=== PATIENT | male | born 1955 | race American Indian/Alaskan Native ===

== ENCOUNTER 2017-02-07 10:38 | Inpatient (IN) | payer OTHER ==
[2017-02-07 10:38] VITALS: BMI 28.8
--- NOTE | 2017-02-07 10:55 | ED PDOC ---
Arrival/HPI - General Chief Complaint: Chest Pain Time Seen by Provider: 02/07/17 10:39 Historian: Patient - History of Present Illness Narrative History of Present Illness (Text): 02/07/17 10:48 A 62 year old male, whose past medical history includes diabetes, hypertension and hyperlipidemia, presents to the emergency department complaining of chest pain for the past 2 days. Patient describes his pain as a pressure sensation. He reports he was seen in another facility but signed out AMA since he no longer wanted to be treated in their emergency room. Patient denies any fever, nausea, vomiting, abdominal pain, shortness of breath, cough or any other complaints. PMD: Dr. Gonzalez Time/Duration: Other (2 days) Symptom Course: Unchanged Quality: Other Context: Other Past Medical History - Provider Review Nursing Documentation Reviewed: Yes - Infectious Disease Hx of Infectious Diseases: None - Cardiac Hx Cardiac Disorders: Yes Hx Hypertension: Yes - Pulmonary Hx Respiratory Disorders: No Other/Comment: smokes 1ppd - Neurological Hx Neurological Disorder: No - HEENT Hx HEENT Disorder: No - Renal Hx Renal Disorder: No - Endocrine/Metabolic Hx Endocrine Disorders: Yes Hx Diabetes Mellitus Type 2: Yes - Hematological/Oncological Hx Blood Disorders: No - Integumentary Hx Dermatological Disorder: No - Musculoskeletal/Rheumatological Hx Falls: No - Gastrointestinal Hx Gastrointestinal Disorders: No - Genitourinary/Gynecological Hx Genitourinary Disorders: No - Psychiatric Hx Psychophysiologic Disorder: No Hx Substance Use: No Other/Comment: smokes 1ppd - Anesthesia Hx Anesthesia Reactions: No Hx Malignant Hyperthermia: No Family/Social History - Physician Review Nursing Documentation Reviewed: Yes Family/Social History: No Known Family HX Smoking Status: Heavy Smoker > 10 Cigarettes Daily Hx Alcohol Use: Yes Hx Substance Use: No Allergies/Home Meds Allergies/Adverse Reactions: Allergies No Known Allergies Allergy (Verified 09/23/15 13:13) Home Medications: Home Meds Medication Instructions Recorded Confirmed Metformin ER [Glucophage XR] 500 mg PO BID 09/23/15 02/07/17 Lisinopril [Zestril] 10 mg PO DAILY 02/07/17 02/07/17 Simvastatin [Simvastatin] 10 mg PO DAILY 02/07/17 02/07/17 Review of Systems - Physician Review All systems were reviewed & negative as marked: Yes - Review of Systems Constitutional: absent: Fevers Respiratory: absent: SOB, Cough Cardiovascular: Chest Pain Gastrointestinal: absent: Abdominal Pain, Nausea, Vomiting Physical Exam Vital Signs Temp Pulse Resp BP Pulse Ox 02/07/17 13:00 97.9 F 70 18 168/73 H 02/07/17 12:49 71 148/71 02/07/17 12:38 70 17 148/71 98 02/07/17 10:38 98.9 F 77 18 182/83 H 98 Appearance: Positive for: Well-Appearing, Non-Toxic, Comfortable Pain Distress: None Mental Status: Positive for: Alert and Oriented X 3 - Systems Exam Head: Present: Atraumatic, Normocephalic Pupils: Present: PERRL Extroacular Muscles: Present: EOMI Conjunctiva: Present: Normal Mouth: Present: Moist Mucous Membranes Neck: Present: Normal Range of Motion Respiratory/Chest: Present: Clear to Auscultation, Good Air Exchange. No: Respiratory Distress, Accessory Muscle Use Cardiovascular: Present: Regular Rate and Rhythm, Normal S1, S2. No: Murmurs Abdomen: Present: Normal Bowel Sounds. No: Tenderness, Distention, Peritoneal Signs Back: Present: Normal Inspection Upper Extremity: Present: Normal Inspection. No: Cyanosis, Edema Lower Extremity: Present: Normal Inspection, NORMAL PULSES. No: Edema, CALF TENDERNESS Neurological: Present: GCS=15, CN II-XII Intact, Speech Normal Skin: Present: Warm, Dry, Normal Color. No: Rashes Psychiatric: Present: Alert, Oriented x 3, Normal Insight, Normal Concentration Medical Decision Making ED Course and Treatment: 02/07/17 10:48 Impression: A 62 year old male with chest pain. Patient denies any shortness of breath or other complaints. Plan: -- Chest xray -- EKG -- Labs -- Urinalysis -- Aspirin -- Reassess and disposition Progress Notes: EKG shows NSR at 77 BPM with LVH, repolarization abnormalities with no changes from prior on 09/23/15. Interpreted by me. 02/07/17 11:[address] Gonzalez at bedside, who accepts patient to her service for observation. 02/07/17 12:45 On re-evaluation, patient is pain free and texting on his phone. - Lab Interpretations Lab Results: 02/07/17 11:00 02/07/17 11:00 Lab Results 02/07/17 11:00: WBC 8.2, RBC 4.07, Hgb 12.3 L, Hct 35.8 L, MCV 88.0, MCH 30.2, MCHC 34.4, RDW 14.3, Plt Count 295, MPV 10.6, Gran % 58.8, Lymph % (Auto) 34.8, [place] % (Auto) 5.9, Eos % (Auto) 0.4 L, Baso % (Auto) 0.1, Gran # 4.81, Lymph # 2.9, [place] # 0.5, Eos # 0.0, Baso # 0.01, PT 10.2, INR 0.94, APTT 25.4, Sodium 138, Potassium 4.5, Chloride 104, Carbon Dioxide 25, Anion Gap 14, BUN 20, Creatinine 1.3, Est GFR ( Amer) > 60, Est GFR (Non-Af Amer) 56, Random Glucose 293 H, Calcium 8.9, Magnesium 1.9, Total Bilirubin 0.4, AST 21, ALT 35, Alkaline Phosphatase 66, Lactate Dehydrogenase 461, Total Creatine Kinase 284 H , CK-MB (CK-2) 2.7, CK-MB (CK-2) % Cancelled, Troponin I 0.04 D, NT-Pro-B Natriuret Pep 67.7, Total Protein 6.7, Albumin 3.8, Globulin 2.9, Albumin/ Globulin Ratio 1.3 - RAD Interpretation Radiology Orders: 02/07/17 10:47 CHEST PORTABLE [RAD] Stat - Medication Orders Current Medication Orders: Acetaminophen (Tylenol 325mg Tab) 650 mg PO Q6H PRN PRN Reason: Fever >100.4 F Albuterol/Ipratropium (Duoneb 3 Mg/0.5 Mg (3 Ml) Ud) 3 ml IH [id number] [facility] Aspirin (Aspirin Chewable) 81 mg PO DAILY [facility] Insulin Human Lispro (Humalog Med) 0 units SC ACHS [facility] PRN Reason: Protocol Lisinopril (Zestril) 20 mg PO DAILY [facility] Last Admin: 02/07/17 12:43 Dose: Metformin HCl (Glucophage) 500 mg PO BID [facility] Metoprolol Succinate (Toprol Xl) 25 mg PO BRK [facility] Last Admin: 02/07/17 12:49 Dose: 25 MG MAR Pulse and Blood Pressure Document 02/07/17 12:49 JOL (Rec: 02/07/17 12:49 JOL [id number]) Pulse Pulse Rate (60-90) 71 Blood Pressure Blood Pressure (100/60-150/90) 148/71 Naproxen (Anaprox Ds) 550 mg PO BID [facility] Pantoprazole Sodium (Protonix Ec Tab) 40 mg PO 0630 [facility] Discontinued Medications Aspirin (Aspirin) 325 mg PO STAT STA Stop: 02/07/17 10:47 Last Admin: 02/07/17 11:09 Dose: 325 MG Morphine Sulfate (Morphine) 4 mg IVP STAT STA Stop: 02/07/17 11:36 Last Admin: 02/07/17 11:48 Dose: 4 MG MAR Pain Assessment Document 02/07/17 11:48 JOL (Rec: 02/07/17 11:54 JOL [id number]) Pain Reassessment Is this a pain reassessment? No Sleep Is patient sleeping during reassessment? No Presence of Pain Presence of Pain Yes Pain Scale Used Pain Scale Used Numeric Location Pain Location Body Site Chest Description Description Stabbing Intensity of Pain at present 7 IVP Administration Document 02/07/17 11:48 JOL (Rec: 02/07/17 11:54 JOL [id number]) Charges for Administration # of IVP Administrations 1 - Scribe Statement The provider has reviewed the documentation as recorded by the Wiliam Farfan Provider Scribe Attestation: All medical record entries made by the Scribe were at my direction and personally dictated by me. I have reviewed the chart and agree that the record accurately reflects my personal performance of the history, physical exam, medical decision making, and the department course for this patient. I have also personally directed, reviewed, and agree with the discharge instructions and disposition. Disposition/Present on Arrival - Present on Arrival Any Indicators Present on Arrival: No History of DVT/PE: No History of Uncontrolled Diabetes: No Urinary Catheter: No History of Decub. Ulcer: No History Surgical Site Infection Following: None - Disposition Have Diagnosis and Disposition been Completed?: Yes Diagnosis: Chest pain Disposition: HOSPITALIZED Disposition Time: 12:00 Patient Problems: Current Active Problems Problem Status Diagnosed Chest pain Acute Condition: STABLE
[2017-02-07 11:14] LABS: ADD MANUAL DIFF? NO
[2017-02-07 11:18] LABS: BASO # 0.01 K/mm3 (0.0-2.0); BASO % 0.1 % (0.0-3.0); EOS % 0.4 % (1.5-5.0); GRAN # 4.81 (1.4-6.5); GRAN % 58.8 % (50.0-68.0); HEMATOCRIT 35.8 % (42.0-52.0); LYMPH # 2.9 (1.2-3.4); LYMPH % 34.8 % (22.0-35.0); MEAN CORPUSCULAR HEMOGLOBIN 30.2 pg (25.0-35.0); MEAN CORPUSCULAR HGB CONC 34.4 g/dl (31.0-37.0); MEAN PLATELET VOLUME 10.6 fl (7.0-11.0); MONO # 0.5 (0.1-0.6); MONO % 5.9 % (1.0-6.0); PLATELET COUNT 295 10^3/uL (120.0-450.0); RED CELL DISTRIBUTION WIDTH 14.3 % (11.5-14.5); WHITE BLOOD COUNT 8.2 10^3/ul (4.5-11.0)
[2017-02-07 11:28] LABS: ALB/GLOB RATIO 1.3 (1.1-1.8); ALKALINE PHOSPHATASE 66 U/L (38-133); ALT/SGPT 35 U/L (7-56); AST/SGOT 21 U/L (15-59); BILIRUBIN,TOTAL 0.4 mg/dL (0.2-1.3); BLOOD UREA NITROGEN 20 mg/dL (7-21); CALCIUM 8.9 mg/dL (8.4-10.5); CARBON DIOXIDE 25 mmol/L (21-33); CHLORIDE 104 mmol/L (98-107); GFR AFRICAN-AMERICAN > 60; GLUCOSE,RANDOM 293 mg/dL (70-110); MAGNESIUM 1.9 mg/dL (1.7-2.2); POTASSIUM 4.5 mmol/L (3.6-5.0); SODIUM 138 mmol/L (132-148); TOTAL PROTEIN 6.7 g/dL (5.8-8.3)
[2017-02-07] MEDS ORDERED: Morphine 4 mg/ml ISec IVP STA (11:35)
[2017-02-07 11:39] LABS: INR 0.94 (0.93-1.08); PARTIAL THROMBOPLASTIN TIME 25.4 Seconds (23.7-30.8); TROPONIN I 0.04 ng/mL
[2017-02-07 12:12] LABS: URINE BILIRUBIN NEGATIVE (NEGATIVE); URINE BLOOD SMALL (NEGATIVE); URINE GLUCOSE (UA) >=1000 mg/dL (NEGATIVE); URINE KETONE NEGATIVE (NEGATIVE); URINE LEUKOCYTE ESTERASE NEGATIVE Leu/uL (NEGATIVE); URINE PROTEIN 30 mg/dL (<30 mg/dL); URINE UROBILINOGEN 0.2 E.U./dL (<1 E.U./dL)
[2017-02-07 12:14] LABS: URINE APPEARANCE CLEAR (CLEAR); URINE COLOR YELLOW (YELLOW)
[2017-02-07 12:22] LABS: URINE BACTERIA FEW (NEG); URINE WBC 0 - 2 /hpf (0-6)
[2017-02-07] MEDS: Metoprolol Succinate 25 mg XL Tab PO SCH (12:49)
--- NOTE | 2017-02-07 12:54 | HP ---
The patient is a 62-year-old, known to me from office practice. He states he was at work yesterday. He started to have chest pain across his chest, not related to his movement. It was associated shor tness of breath. No dizziness. Does complain of headache. No history of sweating. No history of f ever or chills. No history of nausea or vomiting. He went to hospital in [place], close to his work place. They wanted to admit him, but patient signed himself out and preferred to come to [facility] Room, where he presented with chest pain. PAST MEDICAL HISTORY: Significant for: 1. Uncontrolled diabetes. 2. Hyperlipidemia. 3. Hypertension. ALLERGIES: He is not allergic to any medications. MEDICATIONS AT HOME: He is on lisinopril 10 mg daily, simvastatin 10 mg daily, metformin 500 twice a day. SOCIAL HISTORY: He actively smokes. He has a history of heavy smoking in the past. Socially drinks . No history of drug abuse. 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 REVIEW OF SYSTEMS: Significant for chest pain. Complained of headache and shortness of breath. PHYSICAL EXAMINATION: GENERAL: He is awake and alert, communicative, not in any distress. VITAL SIGNS: He is afebrile, pulse 77, respirations 18, blood pressure 182/83. LUNGS: Bilateral good airflow, no rhonchi or crackle. HEART: S1, S2 audible. No murmur. ABDOMEN: Soft, nontender, no rebound, no guarding. NEUROLOGIC: He is awake and alert, communicative. Moves all extremities. EXTREMITIES: Bilateral legs, no edema. LABORATORY EXAMINATION: WBCs 8.2, hemoglobin 12.3, hematocrit 35.8, platelets 295. PT 10.2, INR 0.9 4. Chemistry: Sodium 138, potassium 4.5, chloride 104, CO2 25, BUN 20, creatinine 1.3, blood sugar of 293. LFTs are within normal limits. Repeat CPK is 284. Troponin 0.04. Urinalysis shows small b lood. EKG pending. X-ray chest is pending. ASSESSMENT: 1. Chest pain, rule out underlying coronary artery disease. The patient has multiple risk factors i ncluding hypertension, hyperlipidemia, non-insulin dependent diabetes and being a heavy smoker. 2. Hypertension. 3. Hyperlipidemia. 4. Non-insulin dependent diabetes. PLAN: We will place him in observation. We will follow up cardiac enzymes. The patient had stress test done in 2014 and was essentially unremarkable. Given his multiple risk factors, he might need c ardiac catheterization. We will get Dr. Devi on board. We will start him on beta jessika, aspirin a nd will monitor blood sugar and reevaluate patient in a.m. Silvano Gonzalez MD cc: [phone] TT: 02/07/2017 12:54:24 en
--- NOTE | 2017-02-07 13:25 | RAD ---
HISTORY: cp COMPARISON: 09/23/2015 FINDINGS: LUNGS: No active pulmonary disease. PLEURA: No significant pleural effusion identified, no pneumothorax apparent. CARDIOVASCULAR: Normal. OSSEOUS STRUCTURES: No significant abnormalities. VISUALIZED UPPER ABDOMEN: Normal. OTHER FINDINGS: None. IMPRESSION: No active disease.
--- NOTE | 2017-02-07 15:38 | CON ---
DATE: 02/07/2017 The patient in room 275, bed 2. REASON FOR CONSULTATION: Chest pain. HISTORY OF PRESENT ILLNESS: A 62-year-old male, known case of diabetes, hypertension, high cholester ol, smokes 1 pack a day, states that since Friday he has continuous chest pain which sometimes sha rp, sometimes pressure like. No relation to exertion, but it continuous day and night. It gets wors e when he extends the left arm. The chest pain gets worse. The patient found to have local tenderne ss at all area of the pain. Denies any radiation of the pain to the arms or back. Denies any nausea , vomiting, denies any sweating. In 11/2014, he had also similar chest pain and echo and stress test were done at that time. Stress test was negative. PAST MEDICAL HISTORY: Positive for uncontrolled diabetes mellitus, hyperlipidemia, hypertension. ALLERGIES: The patient denies any allergies. PERSONAL HISTORY: Smokes 1 pack a day, drinks only socially. FAMILY HISTORY: Positive for diabetes. MEDICATIONS: At home, patient was taking simvastatin 10 mg daily, lisinopril 10 mg daily, metformin 500 b.i.d. REVIEW OF SYSTEMS: All the systems were reviewed, positive mentioned in the history, others were neg ative. PHYSICAL EXAMINATION: VITAL SIGNS: Blood pressure 148/71, respirations 17, pulse ____. The patient is afebrile. HEENT: Head is normocephalic. Eyes: Pupils normal. Conjunctivae normal. NECK: JVP low. Carotid equal. THORAX: AP diameter normal. The patient had tenderness on anterior chest wall in the area of the pa in. Also when he extends the left arm, pain gets worse on the chest. LUNGS: Show a few rales. CARDIOVASCULAR: S1, S2. ABDOMEN: Soft, no tenderness, no organomegaly. Bowel sounds normal. EXTREMITIES: No clubbing, no cyanosis. LABORATORY DATA: WBC 8.2, hemoglobin 12.3, hematocrit 34.8, platelet 295. Sodium 138, potassium 4.5 , BUN 20, creatinine 1.3. Random sugar 293. AST, ALT normal. Calcium is normal. Magnesium is norm al. Troponin 0.04. Total protein and albumin normal. Chest x-ray: No active disease. EKG shows s inus rhythm with premature atrial complex, left ventricular hypertrophy. T inversions are seen. DIAGNOSES: Chest pain, musculoskeletal. Uncontrolled diabetes mellitus, hypertension, hyperlipidemi a. PLAN: We will do an echo and a stress test. We will start Naprosyn. The patient already on Protoni x 40 mg daily, aspirin 81 mg daily. We will add naproxen 550 b.i.d., metoprolol succinate, Toprol-XL 25 mg daily, lisinopril 20 mg p.o. daily, metformin 500 mg b.i.d. Advised patient not to smoke. We will recheck lipid profile, TSH, fasting hemoglobin and hemoglobin A1c and also we will do 2 more tr oponin levels. At present, we will treat pain symptomatically. We will follow with you. Lazaro Brady MD cc: [phone] TT: 02/07/2017 15:37:53 Confirmation # [id number] Dictation # [id number] tn
[2017-02-07] MEDS: Naproxen 550 mg Tab PO SCH (17:34)
[2017-02-07] MEDS: Insulin Lispro (humaLOG) MEDIUM Coverage SC SCH ×2 (17:35→21:18)
--- NOTE | 2017-02-07 18:20 | CARD ---
APPROVED REPORT EKG Measurement Heart [id number] <Conclusion> Normal sinus rhythm Left ventricular hypertrophy with repolarization abnormality Abnormal ECG
[2017-02-07] MEDS: Albuterol-Ipratrop 3 mg / 0.5 (3 ml) UD IH SCH (20:15)
[2017-02-08] MEDS: Pantoprazole 40 mg EC Tab PO SCH (05:30)
[2017-02-08] MEDS: Albuterol-Ipratrop 3 mg / 0.5 (3 ml) UD IH SCH ×3 (08:17→20:07)
[2017-02-08 08:22] LABS: TROPONIN I 0.03 ng/mL
[2017-02-08] MEDS: Metoprolol Succinate 25 mg XL Tab PO SCH (08:38)
[2017-02-08] MEDS: Insulin Lispro (humaLOG) MEDIUM Coverage SC SCH ×4 (08:38→21:40)
--- NOTE | 2017-02-08 12:03 | PN ---
DATE: 02/08/2017 SUBJECTIVE: The patient is a 62-year-old, seen and examined. Still has left-sided chest pain, more so on raising his arm, but he states he does have chest pain on the left side deep inside, no relatio n with activities. No fever or chills. No cough or congestion. PHYSICAL EXAMINATION: VITAL SIGNS: He is afebrile, pulse 67, respirations 18, blood pressure 141/81. LUNGS: Bilateral fair airflow, no rhonchi or crackle. HEART: S1, S2 audible. ABDOMEN: Soft, nontender, no rebound, no guarding. NEUROLOGIC: He is awake and alert, communicative, ambulatory. LABORATORY: Blood sugar is 208. ASSESSMENT: 1. Chest pain, muscular versus cardiac. 2. Hypertension. 3. Hyperlipidemia. 4. Active smoker. PLAN: I had a long discussion with the patient. He had stress test done that was unremarkable. He has multiple comorbidities including being active heavy smoker, being uncontrolled diabetic, and hype rtensive. He should benefit from cardiac catheterization. I explained to him at length and he state s he would agree for that. So Dr. Devi has contacted, he will arrange for cardiac catheterization on Friday. Silvano Gonzalez MD cc: [phone] TT: 02/08/2017 12:02:48 Confirmation # [id number] Dictation # [id number] lew
[2017-02-08] MEDS: Naproxen 550 mg Tab PO SCH ×2 (15:38→17:03)
[2017-02-09] MEDS: Albuterol-Ipratrop 3 mg / 0.5 (3 ml) UD IH SCH ×4 (01:46→21:00)
[2017-02-09] MEDS: Pantoprazole 40 mg EC Tab PO SCH (06:28)
[2017-02-09] MEDS: Metoprolol Succinate 25 mg XL Tab PO SCH (08:18)
[2017-02-09] MEDS: Insulin Lispro (humaLOG) MEDIUM Coverage SC SCH ×4 (08:18→22:14)
[2017-02-09] MEDS: Naproxen 550 mg Tab PO SCH ×2 (10:07→17:24)
--- NOTE | 2017-02-09 11:12 | CARD ---
APPROVED REPORT EXAM: Two-dimensional and M-mode echocardiogram with Doppler and color Doppler. 2D DIMENSIONS Left Atrium (2D)3.6 (1.6-4.0cm)IVSd1.3 (0.7-1.1cm) Aortic Root (2D)3.0 (2.0-3.7cm)LVDd4.5 (3.9-5.9cm) PWd1.5 (0.7-1.1cm)LVDs3.4 (2.5-4.0cm) FS (%) 22.9 %LVEF (%)46.2 (>50%) M-Mode DIMENSIONS Aortic Cusp Exc.1.60 (1.5-2.0cm) Mitral Valve MV E Bcqpprom83.6cm/sMV A Nqcyzsly55.0cm/sE/A ratio1.2 TDI Lateral E' Peak V10.90cm/sMedial E' Peak V7.51cm/sE/Lateral E'8.0 E/Medial E'11.7 Pulmonary Valve PV Peak Fuxpmguu25.7cm/sPV Peak Grad.4mmHg Tricuspid Valve TR Peak Yvtiderl595ce/sRAP [id number] Peak Gr.23mmHg [id number] LEFT VENTRICLE The left ventricle is normal size. There is mild concentric left ventricular hypertrophy. The systolic function is mildly impaired.EF-45% There is mild to moderate hypokinesis in the basal inferolateral wall. The left ventricular diastolic function is normal. No left ventricle thrombus noted on this study. There is no ventricular septal defect visualized. There is no left ventricular aneurysm. There is no mass noted in the left ventricle. RIGHT VENTRICLE The right ventricle is normal size. There is normal right ventricular wall thickness. The right ventricular systolic function is normal. ATRIA The left atrium size is normal. The right atrium size is normal. The interatrial septum is intact with no evidence for an atrial septal defect. AORTIC VALVE The aortic valve is mildly thickened but opens well. There is trace aortic regurgitation. There is no aortic valvular stenosis. Aortic Sclerosis Vs Mild MITRAL VALVE The mitral valve is thickened but opens well. Mitral regurgitation is mild. There is no mitral valve stenosis. There is no evidence of mitral valve prolapse. TRICUSPID VALVE The tricuspid valve leaflets are thickened , but open well. There is mild tricuspid regurgitation.RVSP-28 mmof Hg. There is no tricuspid valve stenosis. There is no tricuspid valve prolapse or vegetation. PULMONIC VALVE The pulmonary valve is normal in structure. GREAT VESSELS The aortic root is normal in size. The ascending aorta is normal in size. The pulmonary artery is normal. The IVC is normal in size and collapses >50% with inspiration. PERICARDIAL EFFUSION There is no pleural effusion. There is no pericardial effusion. <Conclusion> The left ventricle is normal size. There is mild concentric left ventricular hypertrophy. The systolic function is mildly impaired.EF-45% There is trace aortic regurgitation. Aortic Sclerosis Vs Mild Mitral regurgitation is mild. There is mild tricuspid regurgitation.RVSP-28 mmof Hg.
--- NOTE | 2017-02-09 12:23 | PN ---
DATE: 02/09/2017 HISTORY OF PRESENT ILLNESS: The patient is a 62-year-old male admitted to the hospital with left-sided chest pain. No dizziness, no shortness of breath. He has diabetes mellitus, which is uncontrolled. He had a cardiac stress test done as an outpatient, which was unremarkable. He is currently on telemetry. Hemoglobin was low at 12 g/dL. Denies any shortness of breath. No bleeding from any site. PAST MEDICAL HISTORY: Diabetes mellitus, uncontrolled hypertension, hyperlipidemia. ALLERGIES: No known drug allergies. CURRENT MEDICATIONS: Tylenol 650 q. 6 hours p.r.n., DuoNeb q. 6 hours scheduled , aspirin 81 mg daily, Lipitor 20 mg daily, Amaryl 4 mg daily, lisinopril 20 mg daily, metformin 500 mg p.o. b.i.d., Toprol XL 200 mg p.o. daily, naproxen 550 mg b.i.d., nicotine patch, Protonix. PERSONAL HISTORY: Heavy smoker. SOCIAL HISTORY: Lives at home. FAMILY HISTORY: Noncontributory. No positive family history in mother or father. SYSTEM REVIEW : as per HPI, rest 10 point system reviewed, negative PHYSICAL EXAMINATION: GENERAL: Comfortable in bed, in no acute distress. VITAL SIGNS: Heart rate is 80 per minute, respiratory 15 per minute, blood pressure 130/70. HEENT: Normal. NECK: No lymphadenopathy. CHEST: Air entry present, equal bilaterally. No added sound. CARDIOVASCULAR: S1, S2 normal. No murmur, no gallop. ABDOMEN: Soft, nontender. No hepatosplenomegaly. EXTREMITIES: No edema. SPINE: Nontender. SKIN: No petechia, no rash. LYMPHADENOPATHY: None. LABORATORY DATA: White count 8.2, hemoglobin 12.3, hematocrit 35.8, MCV 88, platelet count 295. Neutrophils 58%, lymphocytes 34%, monocytes 5%. Coags normal. Sodium 138, potassium 4.5, creatinine 1.3. TSH 1.82. ASSESSMENT: 1. Chest pain. 2. Hypertension. 3. Hyperlipidemia. 4. Uncontrolled diabetes mellitus. 5. Anemia. PLAN: Hemoglobin and hematocrit stable at 12.3 g/dL, workup for anemia, iron studies, B12, folate. Chest pain. He had cardiac stress, which was negative. Scheduled cardiac catheterization for Friday. Cardiology, Dr. Devi, following. He is on lisinopril 20 mg daily. We will continue that. Continue Lipitor 20 mg daily. He is also on nicotine patch because he has been smoking heavily. Continue Protonix. Will continue insulin sliding scale and glimepiride. Continue aspirin 81 mg daily. Discussed with the patient and his bedside. Discussed with the staff nurse. Lina Damon MD cc: [id number] TT: 02/09/2017 12:22:49 Confirmation # [id number] Dictation # [id number] jn MTDD
[2017-02-10] MEDS: Albuterol-Ipratrop 3 mg / 0.5 (3 ml) UD IH SCH ×4 (01:44→21:21)
[2017-02-10] MEDS: Pantoprazole 40 mg EC Tab PO SCH (05:39)
[2017-02-10] MEDS: Metoprolol Succinate 25 mg XL Tab PO SCH ×2 (06:45→08:12)
[2017-02-10] MEDS: Insulin Lispro (humaLOG) MEDIUM Coverage SC SCH ×2 (07:29→16:55)
[2017-02-10 07:51] LABS: HEMATOCRIT 35.8 % (42.0-52.0); MEAN CELL VOLUME 88.2 fL (80.0-105.0); MEAN CORPUSCULAR HEMOGLOBIN 29.3 pg (25.0-35.0); MEAN CORPUSCULAR HGB CONC 33.2 g/dl (31.0-37.0); MEAN PLATELET VOLUME 10.5 fl (7.0-11.0); RED CELL DISTRIBUTION WIDTH 14.4 % (11.5-14.5); WHITE BLOOD COUNT 7.2 10^3/ul (4.5-11.0)
[2017-02-10 09:04] LABS: ALB/GLOB RATIO 1.4 (1.1-1.8); ALKALINE PHOSPHATASE 60 U/L (38-133); ALT/SGPT 28 U/L (7-56); AST/SGOT 24 U/L (15-59); BILIRUBIN,TOTAL 0.4 mg/dL (0.2-1.3); BLOOD UREA NITROGEN 23 mg/dL (7-21); CALCIUM 9.3 mg/dL (8.4-10.5); CARBON DIOXIDE 23 mmol/L (21-33); CHLORIDE 109 mmol/L (95-110); GFR AFRICAN-AMERICAN > 60; GLUCOSE,RANDOM 129 mg/dL (70-110); POTASSIUM 4.5 mmol/L (3.6-5.0); SODIUM 143 mmol/L (132-148); TOTAL PROTEIN 6.5 g/dL (5.8-8.3)
--- NOTE | 2017-02-10 09:33 | PN ---
DATE: 02/10/2017 REASON FOR CONSULTATION AND FOLLOWUP: Chest pain. BRIEF CLINICAL HISTORY: This is a 62-year-old male with past medical history of diabetes, hypertensi on, hyperlipidemia, active tobacco abuse. Came in with chest pain, which is atypical tenderness. Th e patient was scheduled for a stress test, but given the multiple risk factors, suggested cardiac cat heterization. Initially, patient refused, but later on over the weekend, patient agreed. We will pr oceed for cardiac catheterization today because of the multiple risk factors for coronary artery dise ase. Discussed with Dr. Gonzalez and Dr. Brady. PHYSICAL EXAMINATION: VITAL SIGNS: Temperature afebrile, heart rate 73, blood pressure 150/83. HEENT: PERRLA. Extraocular muscles intact. NECK: Supple. No carotid bruits. No thyromegaly. CHEST: Clear to auscultation. HEART: S1, S2 regular. ABDOMEN: Soft. EXTREMITIES: Clubbing, cyanosis negative. WBC 11. , hemoglobin 11.9, hematocrit 35.8, platelet count 304. Chemistry shows sodium 130, pota ssium 4.5, chloride 104, carbon dioxide 25, anion gap of 14, BUN 20, creatinine 1.3. Total triglycer adonay 176, cholesterol 211, LDL 138, HDL 38. TSH 1.82. Troponin 0.03. IMPRESSION: No evidence of acute coronary syndrome, diabetes, hypertension, hyperlipidemia, cardiomy opathy. Most recent echo on 02/08/2017 said that aortic stenosis was mild aortic stenosis, mild jake l regurgitation, mild tricuspid regurgitation, ejection fraction 45%. The patient agreed for cardiac catheterization. We will keep n.p.o., give 300 loading Plavix. Further recommendations after the c ardiac catheterization. We will follow with you. Thank you, Dr. Gonzalez, for providing us the opportunity in taking care of the patient. Lazaro Devi MD cc: [phone] TT: 02/10/2017 09:32:40 Confirmation # [id number] Dictation # [id number] en
[2017-02-10] MEDS ORDERED: Lidocaine 2% Inj (20ml) ONE (10:37)
[2017-02-10] MEDS ORDERED: Midazolam 2 MG/2 ML VIAL ONE (10:38)
[2017-02-10] MEDS ORDERED: Iodixanol 320 MG/ML 200 ML BOTTLE IV ONE (10:38)
[2017-02-10] MEDS ORDERED: Bacitracin 500 Units/gm Oint Foilpak UD TOP ONE (11:58)
[2017-02-10] MEDS ORDERED: Sodium Chloride 0.9% 1,000 ML IV SCH (12:00)
[2017-02-10] MEDS: Naproxen 550 mg Tab PO SCH ×2 (13:44→17:03)
--- NOTE | 2017-02-10 14:15 | DS ---
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 Devi this morning. Currently, he is stable. PHYSICAL EXAMINATION: GENERAL: He is awake and alert, communicative. VITAL SIGNS: He is afebrile, pulse 80, respirations 22, blood pressure 151/83. LUNGS: Bilateral fair airflow, no rhonchi or crackle. HEART: S1, S2 audible. No murmur. ABDOMEN: Soft, nontender, no rebound, no guarding. NEUROLOGIC: He is awake and alert, communicative. LABORATORY EXAMINATION: WBCs 7.2, hemoglobin 11.9, hematocrit 35.8, platelets 304. Chemistry: [place] um 143, potassium 4.5, chloride 109, CO2 23, BUN 23, creatinine 1.3, blood sugar of 129. ASSESSMENT AND PLAN: 1. Intermittent chest pain with multiple comorbidities including hypertension, active smoker, and hy perlipidemia. 2. Non-insulin dependent diabetes. 3. Hyperlipidemia. So patient had cardiac cath done that showed ostial left main 80%-90%, so we will maintain him on sta tins, Plavix, aspirin, Protonix and continue him on current medication. Dr. Devi will make arrangeme nts for angioplasty in [facility] and he will be transferred here tomorrow to [facility]. Silvano Gonzalez MD cc: [phone] TT: 02/10/2017 14:14:54 en
[2017-02-10] MEDS ORDERED: Bacitracin 500 Units/gm Oint Foilpak UD ONE (14:16)
--- NOTE | 2017-02-10 15:10 | CARD ---
APPROVED REPORT Procedure(s) performed: Left Heart Catheterization HISTORY The patient is a 62 year-old male with a history of : most recent EF: 45%. (EF Method: Echocardiogram), diabetes mellitus with insulin treatment , chronic lung disease, tobacco history() : The patient is a current smoker , hypertension , dyslipidemia , Admitted with Chest pain. INDICATION The indication(s) include : unstable angina . CASE TECHNIQUE The patient was brought urgently to the Cardiac Catheterization Laboratory in a fasting state and was prepped and draped in a sterile manner. The left wrist was infiltrated with 2% Lidocaine subcutaneous anesthesia. A 6 Fr Glidesheath (Radial) sheath was inserted into the left radial artery without difficulty. Coronary angiography was performed using coronary diagnostic catheters. The left coronary system was accessed and visualized with a Diagnostic,5 Fr JL 3.5 catheter. The right coronary system was accessed and visualized with a Diagnostic ,5 Fr JR 4 catheter. The left ventricle was accessed and visualized with a pig tail catheter. Left ventricular/Aortic Valve gradient assessed on pullback. Left ventriculogram was performed in TEJADA projection. Closure device was deployed with a Fr TR Band (Regular) without any complications. The patient tolerated the procedure well and there were no complications associated with the procedure. Vessel Analysis The patient's coronary anatomy is right dominant. The left main coronary artery is a large size vessel with diffuse calcification noted throughout this vessel and with significant stenosis. The left main bifurcates to the left anterior descending and circumflex. The left anterior descending artery is a medium size vessel with diffuse calcification noted throughout this vessel and without significant stenosis. The first diagonal branch is a medium size vessel with diffuse calcification noted throughout this vessel and without significant stenosis. The circumflex artery is a small size vessel with diffuse calcification noted throughout this vessel and without significant stenosis. Diminutive vessel with diffusely disease. The first obtuse marginal branch is a small size vessel with diffuse calcification noted throughout this vessel and without significant stenosis. The right coronary artery is a large size vessel with diffuse calcification noted throughout this vessel and without significant stenosis. There is a 40% stenosis in the proximal segment. The right posterior descending artery is a medium size vessel with diffuse calcification noted throughout this vessel and without significant stenosis. There is a 60-70% stenosis in the mid segment. The right posterolateral branch is a small size vessel with diffuse calcification noted throughout this vessel and with significant stenosis. There is a 80-90% stenosis in the mid segment. Left Ventricle The left ventricle is normal in size with normal contractility. There was no cardiomyopathy. The left ventricular ejection fraction is estimated to be 55%. The left ventricular end diastolic pressure is 20 mmHg. There was no gradient across the aortic valve upon pullback. Conclusion Left main Diz, Ostial but CX is diminutive Distal RCa and P LV Branch has Diz Preserved LV Fx, EF-55%. EDP-20 Recommendations Revascularization: Pt is reluctant for OHS and PLV Br and Cx are not a good target for OHS, CX is diminutive vessel So ostial Left main Stent which would be equivalent to Ostail LAD stenting. Will tx to [facility] for Ostial Left main stent with +/_ Impella device Cc; Dr. Gonzalez
[2017-02-10] MEDS: Insulin Reg-LOW-Coverage SC SCH ×2 (17:04→22:00)
[2017-02-11 01:13] VITALS: BP 138/70; RESP 21; TEMP 98.3; O2SAT 92
[2017-02-11] MEDS: Albuterol-Ipratrop 3 mg / 0.5 (3 ml) UD IH SCH (01:28)
[2017-02-11 02:29] VITALS: PULSE 67
[2017-02-11 07:09] LABS: ADD MANUAL DIFF? NO
[2017-02-11 07:10] LABS: BASO # 0.01 K/mm3 (0.0-2.0); BASO % 0.1 % (0.0-3.0); EOS # 0.1 (0.0-0.7); EOS % 0.9 % (1.5-5.0); GRAN # 3.54 (1.4-6.5); GRAN % 52.7 % (50.0-68.0); HEMATOCRIT 34.9 % (42.0-52.0); LYMPH # 2.6 (1.2-3.4); LYMPH % 38.7 % (22.0-35.0); MEAN CELL VOLUME 87.9 fL (80.0-105.0); MEAN CORPUSCULAR HEMOGLOBIN 29.2 pg (25.0-35.0); MEAN CORPUSCULAR HGB CONC 33.2 g/dl (31.0-37.0); MEAN PLATELET VOLUME 10.3 fl (7.0-11.0); MONO # 0.5 (0.1-0.6); MONO % 7.6 % (1.0-6.0); PLATELET COUNT 291 10^3/uL (120.0-450.0); RED CELL DISTRIBUTION WIDTH 14.4 % (11.5-14.5); WHITE BLOOD COUNT 6.7 10^3/ul (4.5-11.0)
[2017-02-11 08:01] LABS: ALB/GLOB RATIO 1.4 (1.1-1.8); ALKALINE PHOSPHATASE 60 U/L (38-133); ALT/SGPT 33 U/L (7-56); AST/SGOT 26 U/L (15-59); BILIRUBIN,TOTAL 0.4 mg/dL (0.2-1.3); BLOOD UREA NITROGEN 21 mg/dL (7-21); CALCIUM 9.1 mg/dL (8.4-10.5); CARBON DIOXIDE 25 mmol/L (21-33); CHLORIDE 107 mmol/L (95-110); GFR AFRICAN-AMERICAN > 60; GLUCOSE,RANDOM 122 mg/dL (70-110); PHOSPHOROUS 4.5 mg/dL (2.5-4.5); POTASSIUM 4.4 mmol/L (3.6-5.0); SODIUM 143 mmol/L (132-148); TOTAL PROTEIN 6.3 g/dL (5.8-8.3)
--- NOTE | 2017-02-11 09:54 | PN ---
DATE: 02/11/2017 REASON FOR CONSULTATION AND FOLLOWUP: Chest pain, status post cardiac catheterization and ostial lef t main disease. BRIEF CLINICAL HISTORY: This is a 62-year-old male with a past medical history of diabetes, hyperten steven, hyperlipidemia, active tobacco abuse. Yesterday, underwent cardiac catheterization, found to b e ostial left main disease 80%-90% with a diminutive circ, very small circ, large RCA. RCA has moder ate disease, dominant and proximal 40% stenosis in the RCA and distal segment 60%-70% and the posteri or lateral 90% stenosis. The patient's coronary anatomy is not good, that is circ and RCA for target vessels for open heart surgery and patient refused open heart surgery as well. In view of abo ve, patient is being transferred to [facility] for PTCA of ostial left main LAD ostial. Risks, benefits, alternatives discussed with the patient. The patient will be transferred this morning to [facility] for PTCA. PHYSICAL EXAMINATION: VITAL SIGNS: Temperature afebrile, heart rate . HEENT: PERRLA. Extraocular muscles intact. NECK: Supple. No carotid bruits. No thyromegaly. CHEST: Clear to auscultation. HEART: S1, S2 regular. ABDOMEN: Soft. EXTREMITIES: Clubbing, cyanosis negative. WBC 6.7, hemoglobin 11.6, hematocrit 34.9, platelet count 291. Chemistry shows sodium 143, potassium 4.4, chloride 107, carbon dioxide 25, anion gap of 15, BUN 21, creatinine 1.2, total protein 6.3, al bumin , albumin/globulin ratio 1.4. IMPRESSION: Coronary artery disease, ostial left main, diabetes, hypertension, hyperlipidemia, activ e tobacco abuse. RECOMMENDATION: Continue aspirin, continue Plavix, continue metoprolol. Hold metformin, keep n.p.o. Continue lisinopril. The patient will be transferred to [facility] for percutaneou s transluminal coronary angioplasty ostial left main. Discussed with the last night, discussed with the patient. Thank you, Dr. Gonzalez, for providing us the opportunity in taking care of the patient. Lazaro Devi MD cc:Silvano Gonzalez MD 305 TT: 02/11/2017 09:31:36 Confirmation # [id number] Dictation # [id number] en 02/11/2017 08:53:52
--- NOTE | 2017-02-11 18:58 | DS ---
HISTORY OF PRESENT ILLNESS: The patient is a 62-year-old male who came with chest pain, more so with activity. The patient has multiple comorbidities, including hypertension, active smoker, non-insuli n-dependent diabetes. So, he had cardiac cath done by Dr. Devi yesterday. He was found to have 80% to 90% of the left main, so he was transferred to [facility] today for angioplasty. PHYSICAL EXAMINATION: GENERAL: He is awake and alert, communicative. VITAL SIGNS: He is afebrile, pulse 60, respirations 21, blood pressure 138/70. LUNGS: Bilateral good airflow, no rhonchi or crackles. HEART: S1, S2 audible. No murmur. ABDOMEN: Soft, nontender, no rebound, no guarding. NEUROLOGIC: He is awake and alert, communicative. LABORATORY EXAMINATION: WBC 6.7, hemoglobin 11.6, hematocrit 34.9, platelets 291. Chemistry: Sodiu m 143, potassium 4.4, chloride 107, CO2 of 25, BUN 21, creatinine 1.2, blood sugar 133. ASSESSMENT AND PLAN: 1. Chest pain secondary to underlying coronary artery disease. 2. Ostial left main occlusion. 3. Pud-wvgqxuh-ppkdcutpm diabetes. 4. Hypertension. 5. Hyperlipidemia. 6. Active smoking. PLAN: He is transferred to [facility] today. He will have angioplasty done. He is strongly advise d to quit smoking and he is also advised to be compliant with his diabetes and blood pressure medicat ion. Once he is discharged from [facility], he will follow up with me. Silvano Gonzalez MD cc: [phone] TT: 02/11/2017 18:57:03 leonard
== END 2017-02-11 09:08 | disposition short-term general hospital (02) | DRG 287 ==
LOC: ED 10:38 → INTOOBSV 11:42 → OBSVTOIN 11:42 → ERH 11:42 → 2RSO 13:21 → OBSVTOIN 02-08 10:41
PROVIDERS: ADMIT Internal Medicine; ATTEND Internal Medicine
PROC: 4A023N7 Measurement of Cardiac Sampling and Pressure, Left Heart, Percutaneous Approach (ICD-10-PCS; principal; 2017-02-10)
PROC: B2051ZZ Plain Radiography of Left Heart using Low Osmolar Contrast (ICD-10-PCS; 2017-02-10)
PROC: B2011ZZ Plain Radiography of Multiple Coronary Arteries using Low Osmolar Contrast (ICD-10-PCS; 2017-02-10)
DX: I25.110 Atherosclerotic heart disease of native coronary artery with unstable angina pectoris (principal); E11.65 Type 2 diabetes mellitus with hyperglycemia; I10 Essential (primary) hypertension; I08.3 Combined rheumatic disorders of mitral, aortic and tricuspid valves; E78.5 Hyperlipidemia, unspecified; F17.210 Nicotine dependence, cigarettes, uncomplicated; D64.9 Anemia, unspecified; Z79.84 Long term (current) use of oral hypoglycemic drugs

== ENCOUNTER 2017-03-06 06:41 | Day surgery (SDC) | payer OTHER ==
[2017-03-03 08:56] VITALS: BMI 26.4
--- NOTE | 2017-03-06 07:33 | HP ---
REASON FOR ADMISSION: Elective PTCA of right coronary artery. BRIEF CLINICAL HISTORY: A 62-year-old male with a past medical history of diabetes, hypertension, hy perlipidemia, active tobacco abuse, admitted with acute coronary syndrome. The patient underwent car diac catheterization on 02/11/2017 that showed ostial left main of 90% ____ circumflex, very large RC A has moderate disease and distal RCA 60%-70%, and RPDA has a 90% stenosis. The patient underwent at [facility] ([facility] where the ostial left main stenting was done. Now patient admitte d for a staged PTCA of RCA. Complained of some chest pain. PAST MEDICAL HISTORY: Significant for diabetes, hypertension, hyperlipidemia, obesity, Previous card iac workup as follows: The patient had a cardiac catheterization on 02/10/2017 that showed ostial lef t main disease, circumflex diminutive, right coronary artery ____ RCA has disease. The patient admi tted electively for PTCA of RCA. The patient had echocardiography on 02/08/2017 that showed ejection fraction 45%, trace aortic regurgitation, mild aortic stenosis versus aortic sclerosis, mild mitral r egurgitation, mild tricuspid regurgitation, RV systolic pressure 28. SOCIAL HISTORY: Smokes and socially drinking. FAMILY HISTORY: Significant for diabetes. REVIEW OF SYSTEMS: As per HPI. PHYSICAL EXAMINATION: VITAL SIGNS: Temperature afebrile, heart rate ____, blood pressure 130/70. HEENT: PERRLA. Extraocular muscles intact. NECK: Supple. No carotid bruits. No thyromegaly. CHEST: Clear to auscultation. HEART: S1, S2 regular. ABDOMEN: Soft. EXTREMITIES: Clubbing and cyanosis negative. LABORATORY DATA: Blood workup as follows: WBC 6.____, hemoglobin 11.6, hematocrit 34.9, platelet co unt 291. Chemistry shows sodium 140, potassium 4.1, chloride 107, carbon dioxide 25, anion gap of 25 , BUN 20, creatinine 1.2. IMPRESSION: History of coronary artery disease with unstable angina in the past, status post percuta neous transluminal coronary angioplasty of the ostial left main, now admitted for a staged percutaneo us transluminal coronary angioplasty of right coronary artery. RECOMMENDATION: We will review the ostial left main and will do the PTCA of RCA. Further recommenda tion after the PTCA. We will follow with you. Thank you, Dr. Gonzalez, for providing the opportunity in taking care of this patient. Lazaro Devi MD cc: [phone] TT: 03/05/2017 21:05:39 jn
[2017-03-06] MEDS ORDERED: Lidocaine 2% Inj (20ml) ONE (09:18)
[2017-03-06] MEDS ORDERED: Iohexol 350 MG/100 ML VIAL ONE (09:19)
[2017-03-06] MEDS ORDERED: Nitroglycerin 50mg in D5W 50 MG/250 ML BOTTLE IV ONE (09:19)
[2017-03-06] MEDS ORDERED: Iohexol 350mgl/ml 50 ML ONE (09:19)
[2017-03-06] MEDS ORDERED: Sodium Bicarbonate (8.4%) 50 Meq Syringe ONE (09:26)
[2017-03-06] MEDS ORDERED: Iodixanol 320 MG/ML 100 ML BOTTLE IV ONE (09:28)
[2017-03-06] MEDS ORDERED: Iodixanol 320 MG/ML 200 ML BOTTLE IV ONE (09:28)
[2017-03-06] MEDS ORDERED: Midazolam 2 MG/2 ML VIAL ONE (09:47)
[2017-03-06] MEDS ORDERED: Eptifibatide 20 mg/10mL Inj IVP ONE (09:52)
[2017-03-06] MEDS ORDERED: Phenylephrine 10 mg/ml Inj ONE (09:57)
[2017-03-06 23:14] LABS: BLOOD UREA NITROGEN 26 mg/dL (7-21); CALCIUM 8.7 mg/dL (8.4-10.5); CARBON DIOXIDE 25 mmol/L (21-33); CHLORIDE 105 mmol/L (98-107); GFR AFRICAN-AMERICAN > 60; GLUCOSE,RANDOM 232 mg/dL (70-110); POTASSIUM 4.3 mmol/L (3.6-5.0); SODIUM 138 mmol/L (132-148)
--- NOTE | 2017-03-07 08:17 | CARDCATH ---
PROCEDURE DATE: 03/06/2017 Superprotonic system is down. PROCEDURES DONE: Right and left coronary injection, PTCA with drug-eluting stent of RCA and plain balloon angioplasty of RPDA. OPERATING PHYSICIAN: Dr. Devi. ROLLOUT MANAGER: Vanita, electromedical equipment technician, scheduling elective. REFERRING PHYSICIAN: Dr. Silvano Gonzalez. BRIEF CLINICAL HISTORY: This is a 62-year-old male with past medical history of diabetes, hypertension, hyperlipidemia, ex-smoker who was admitted with unstable angina 4 weeks ago, underwent cardiac catheterization, found to have left main disease, LAD some luminal irregularity and diminutive circumflex and mid RCA has disease as well as RPDA. The patient subsequently transferred to [facility] where the patient underwent ostial left main stenting with Impella device and today the patient now admitted for a staged PTCA of right coronary artery as well as RPDA. The patient was brought to the cathode ray tube assembler, draped in sterile standard fashion. Left radial artery was prepped and accessed with a micropuncture and then left and right Otis catheter, pigtail catheter were used for coronary angiography. FINDINGS: As follows: 1. A patent stent in left main noted. LAD has some luminal irregularities. Circumflex is diminutive as before. Right coronary injection revealed mid RCA 80%-90% stenosis and RPDA has 80%-90% stenosis noted. In view of above, PTCA of right coronary artery as well as RPDA was contemplated. 25 mg of heparin was given during access for left radial artery, 1000 more heparin was given and 2 Integrilin boluses were given. Then a Otis right 3.5 was taken to engage the right coronary Ostium, then Ludge 180 cm was lesionto cross the lesion, and then primary dilatation was done of RPDA with a 2 mm diameter balloon , compliant and multiple inflations done in RPDA from 6-10 atmospheres, each for 1 minute. After that, a drug-coated stent 3 mm in diameter and 18 mm in length was taken and deployed in the mid RCA at 14 atmospheres for 20 seconds. After this 200 antonino IC nitroglycerine was given and pictures were taken. Stenosis decreased in Mid RCA. from preprocedure 80% to post procedure 0 with JAIR 3 flow, post procedure and preprocedure JAIR 1 flow. Stenosis, decreased in the RPDA from 80-90% to 0. Preprocedure JAIR 2 flow, now JAIR 3 post-procedure flow. SUMMARY: 1. The following procedure was done, both left and right coronary injection. 2. Stenting of mid RCA with a drug-eluting stent. 3. Plain balloon angioplasty of RPDA with reduction of stenosis 80%-90%, preprocedure to post procedure0 % post-procedure with JAIR 3 flow postprocedure , preprocedure JAIR 2 flow. 4. patent stent left main artery done two weeks ago at [facility] with Impella device. RECOMMENDATIONS: Continue aspirin, continue Brilinta for 1 year twice. Continue statin. Continue beta jessika and CATHERINE. Followup renal function BUN/ creatinine 1.5, total 50 mL of contrast used. Will continue IV bicarbonate. Repeat SMA-7 before the patient goes home and repeat SMA-7 in [address] Gonzalez. Thank you, Dr. Gonzalez, for providing the opportunity in taking care of this patient. Will follow with you. Lazaro Devi MD cc: Silvano Gonzalez MD 305 TT: 03/06/2017 15:42:13 lady 03/07/2017 06:39:33 IRASEMA
[2017-03-07 08:48] LABS: INR 0.94 (0.93-1.08)
[2017-03-07 11:49] LABS: HEMATOCRIT 28.4 % (42.0-52.0); MEAN CELL VOLUME 87.9 fL (80.0-105.0); MEAN CORPUSCULAR HEMOGLOBIN 30.3 pg (25.0-35.0); MEAN CORPUSCULAR HGB CONC 34.5 g/dl (31.0-37.0); MEAN PLATELET VOLUME 9.8 fl (7.0-11.0); RED CELL DISTRIBUTION WIDTH 14.2 % (11.5-14.5); WHITE BLOOD COUNT 6.6 10^3/ul (4.5-11.0)
[2017-03-07 13:28] LABS: CALCIUM 9.6 mg/dL (8.4-10.5); POTASSIUM 4.8 mmol/L (3.6-5.0)
[2017-03-07 14:17] LABS: HEMATOCRIT 30.2 % (42.0-52.0); MEAN CELL VOLUME 88.3 fL (80.0-105.0); MEAN CORPUSCULAR HEMOGLOBIN 30.4 pg (25.0-35.0); MEAN CORPUSCULAR HGB CONC 34.4 g/dl (31.0-37.0); MEAN PLATELET VOLUME 10.1 fl (7.0-11.0); RED CELL DISTRIBUTION WIDTH 14.5 % (11.5-14.5); WHITE BLOOD COUNT 8.4 10^3/ul (4.5-11.0)
--- NOTE | 2017-03-07 23:01 | CARD ---
APPROVED REPORT EKG Measurement Heart [id number] <Conclusion> Normal sinus rhythm Minimal voltage criteria for LVH, may be normal variant Borderline ECG
== END 2017-03-06 17:45 | disposition home or self-care (01) ==
LOC: CATH 06:41 → 2RSO 11:30 → CATH 11:30 → 2RSO 17:45 → CATH 17:45
PROVIDERS: ATTEND Internal Medicine Cardiovascular Disease
DX: I25.10 Atherosclerotic heart disease of native coronary artery without angina pectoris (principal); E11.9 Type 2 diabetes mellitus without complications; I10 Essential (primary) hypertension; E78.5 Hyperlipidemia, unspecified; E66.9 Obesity, unspecified; I08.3 Combined rheumatic disorders of mitral, aortic and tricuspid valves; Z83.3 Family history of diabetes mellitus; Z68.26 Body mass index [BMI] 26.0-26.9, adult
CPT/HCPCS: 36415; 80048; 80061; 82550; 82948; 85027; 85175; 85610; 85730; 86850; 86900; 93005; 93454; 99152; 99153; C1725; C1769 ×2; C1874; C1887; C9600; J1327; J1644 ×2; J2250; J3010; J7030; J7040; Q9967

== ENCOUNTER 2017-04-26 11:55 | Emergency (ER) | payer OTHER ==
[2017-04-26 12:07] VITALS: BMI 27.3
[2017-04-26] MEDS ORDERED: Sodium Chloride 0.9% 1,000 ML IV STA (12:29)
--- NOTE | 2017-04-26 12:33 | ED PDOC ---
Arrival/HPI - General Chief Complaint: Back Pain Time Seen by Provider: 04/26/17 12:28 Historian: Patient - History of Present Illness Narrative History of Present Illness (Text): 04/26/17 12:29 A 62 year old male presents to the emergency department complaining of left lower abdominal pain for the past 2 days. Patient notes radiating pain to left flank but states it is mainly focused in left lower quadrant. Contrary to triage note, patient denies any dizziness, nausea or vomiting. Patient notes mild lightheadedness but denies any fever, chills, diarrhea, urinary symptoms, chest pain, shortness of breath or any other complaints. PMD: Dr. Gonzalez Time/Duration: Other (2 days) Symptom Course: Unchanged Quality: Other Context: Other Past Medical History - Provider Review Nursing Documentation Reviewed: Yes - Infectious Disease Hx of Infectious Diseases: None - Cardiac Hx MT: Yes Hx Hypertension: Yes Hx Pacemaker: No - Pulmonary Hx Respiratory Disorders: No Other/Comment: smokes 1ppd - Neurological Hx Paralysis: No - HEENT Hx HEENT Disorder: No - Renal Hx Renal Disorder: No - Endocrine/Metabolic Hx Endocrine Disorders: Yes Hx Diabetes Mellitus Type 2: Yes - Hematological/Oncological Hx Blood Transfusions: No Hx Blood Transfusion Reaction: No - Integumentary Hx Dermatological Disorder: No - Musculoskeletal/Rheumatological Hx Musculoskeletal Disorders: No - Gastrointestinal Hx Gastrointestinal Disorders: No - Genitourinary/Gynecological Hx Genitourinary Disorders: No - Psychiatric Hx Psychophysiologic Disorder: No Hx Substance Use: No Other/Comment: smokes 1ppd - Surgical History Hx Coronary Stent: Yes - Anesthesia Hx Anesthesia Reactions: No Hx Malignant Hyperthermia: No Family/Social History - Physician Review Nursing Documentation Reviewed: Yes Family/Social History: No Known Family HX Smoking Status: Heavy Smoker > 10 Cigarettes Daily Hx Alcohol Use: Yes (ON OCCASION) Hx Substance Use: No Allergies/Home Meds Allergies/Adverse Reactions: Allergies No Known Allergies Allergy (Verified 09/23/15 13:13) Home Medications: Home Meds Medication Instructions Recorded Confirmed Metformin ER [Glucophage XR] 500 mg PO BID 09/23/15 04/26/17 Lisinopril [Zestril] 10 mg PO DAILY 02/07/17 04/26/17 Simvastatin [Simvastatin] 10 mg PO DAILY 02/07/17 04/26/17 Aspirin [Ecotrin] 81 mg PO DAILY 03/03/17 04/26/17 Ticagrelor [Brilinta] 90 mg PO BID 03/03/17 04/26/17 Physical Exam - Physical Exam Narrative Physical Exam (Text): - Review of Systems Constitutional: Normal. absent: Fatigue, Weight Change, Fevers Eyes: Normal ENT: Normal Respiratory: Normal absent: SOB, Cough, Sputum Cardiovascular: Normal absent: Chest pain, Palpitations, Syncope Gastrointestinal: (+) Left lower abdominal pain radiating to left flank absent: Diarrhea, Nausea, Vomiting Genitourinary: Normal. absent: Dysuria, Frequency, Hematuria Musculoskeletal: Normal. absent: Arthralgias, Back Pain, Neck Pain Skin: Normal Neurological: (+) Lightheadedness absent: Focal Weakness, Dizziness Endocrine: Normal Hemo/Lymphatic: Normal Psychiatric: Normal - Physical exam Patient appears age appropriate, speaking full sentences without difficulty - Systems Exam Head: Present: Atraumatic, Normocephalic Pupils: Present: PERRL Extraocular Muscles: Present: EOMI Conjunctiva: Present: Normal Mouth: Present: Moist Mucous Membranes Neck: Present: Normal Range of Motion. No: MIDLINE TENDERNESS, Paraspinal Tenderness Respiratory/Chest: Present: Clear to Auscultation, Good Air Exchange. No: Respiratory Distress, Accessory Muscle Use, Tachypnic Cardiovascular: Present: Regular Rate and Rhythm, Normal S1, S2, Peripheral Pulses Present. No: Murmurs Abdomen: Present: Normal Bowel Sounds, Left lower quadrant tenderness to palpation No: Peritoneal Signs, Rebound, Guarding, Distention Back: Present: Normal Inspection. No: Midline Tenderness, Paraspinal Tenderness Upper Extremity: Present: Normal Inspection. No: Cyanosis, Edema Lower Extremity: Present: Normal Inspection. No: Edema Neurological: Present: GCS=15, Speech Normal, cranial nerves II through XII fully intact with no cerebellar abnormality, neuro-sensory fully intact. No focal neurological deficits. Skin: Present: Warm, Dry, Normal Color. No: Rashes Lymphatic: Present: OX3, NI, NC Psychiatric: Present: Alert, Oriented x 3, Normal Insight, Normal Concentration Vital Signs Reviewed: Yes Vital Signs Temp Pulse Resp BP Pulse Ox 04/26/17 14:50 66 16 154/88 H 100 04/26/17 12:04 98.0 F 78 16 168/85 H 98 Temperature: Afebrile Blood Pressure: Hypertensive Pulse: Regular Respiratory Rate: Normal Appearance: Positive for: Well-Appearing, Non-Toxic, Comfortable Pain Distress: None Mental Status: Positive for: Alert and Oriented X 3 Medical Decision Making ED Course and Treatment: 04/26/17 12:29 Impression: A 62 year old male with left lower abdominal pain radiating to left flank. Patient notes lightheadedness but denies any other symptoms. On exam, left lower quadrant tenderness. Differential Diagnosis included but are not limited to: Diverticulitis vs. Colitis vs. Nonspecific abdominal pain Plan: -- Abdomen and pelvis CT -- EKG -- Labs -- Blood culture -- Urinalysis -- Toradol and IV fluids -- Reassess and disposition Progress Notes: 04/26/17 15:38 CT shows mild diverticulosis of descending colon no leukocytosis, afebrile, in no distress On reevaluation, patient reports that he feels much better and would like to be discharged home. Patient's repeat abdominal exam is soft, nontender, non distended with positive bowel sounds in all 4 quadrants and no peritoneal signs. Patient is tolerating PO without any difficulty. Pt states he understands to return to the ER right away for new or worsening symptoms or for inability to f/u with PMD or specialist as instructed. Patient states that he fully agrees with and understands discharge instructions. States that he agrees with the plan and disposition. Verbalized and repeated discharge instructions and plan. I have given the patient opportunity to ask any additional questions. - Lab Interpretations Lab Results: 04/26/17 12:54 04/26/17 13:35 Lab Results 04/26/17 14:13: Urine Color Yellow, Urine Appearance Clear, Urine pH 6.0, Ur Specific [place] 1.015, Urine Protein Trace H, Urine Glucose (UA) Negative, Urine Ketones Negative, Urine Blood Negative, Urine Nitrate Negative, Urine Bilirubin Negative, Urine Urobilinogen 0.2, Ur Leukocyte Esterase Negative, Urine RBC 0 - 2, Urine WBC 0 - 2, Ur Epithelial Cells 0 - 2, Urine Bacteria Trace, Hyaline Casts 0 - 2 04/26/17 13:35: Sodium 142, Potassium 4.9, Chloride 108 H, Carbon Dioxide 22, Anion Gap 17, BUN 25 H, Creatinine 1.4, Est GFR ( Amer) > 60, Est GFR ( Non-Af Amer) 51, Random Glucose 212 H, Calcium 9.8, Total Bilirubin 0.3, AST 18 , ALT 27, Alkaline Phosphatase 59, Total Protein 6.6, Albumin 4.2, Globulin 2.4 , Albumin/Globulin Ratio 1.8 04/26/17 12:54: Lipase 169 04/26/17 12:54: PT 10.6, INR 0.98, APTT 24.5 04/26/17 12:54: WBC 8.8 D, RBC 3.51, Hgb 10.3 L, Hct 31.6 L, MCV 90.0, MCH 29.3 , MCHC 32.6, RDW 13.8, Plt Count 330, MPV 10.0, Gran % 79.8 H, Lymph % (Auto) 15.8 L, [place] % (Auto) 4.1, Eos % (Auto) 0.2 L, Baso % (Auto) 0.1, Gran # 7.01 H , Lymph # 1.4, [place] # 0.4, Eos # 0.0, Baso # 0.01 I have reviewed the lab results: Yes - RAD Interpretation Radiology Orders: 04/26/17 12:29 ABD & PELVIS IV CONTRAST ONLY [CT] Stat - Medication Orders Current Medication Orders: Discontinued Medications Sodium Chloride (Sodium Chloride 0.9%) 1,000 mls @ 1,000 mls/hr IV .Q1H STA Stop: 04/26/17 13:28 Last Admin: 04/26/17 12:45 Dose: 1,000 mls/hr Iohexol (Omnipaque 350 100 Ml) Confirm Administered Dose 350 mg .ROUTE .STK-MED ONE Stop: 04/26/17 14:24 Ketorolac Tromethamine (Toradol) 15 mg IVP STAT STA Stop: 04/26/17 12:30 Last Admin: 04/26/17 12:46 Dose: 15 mg Re-Assess: MAR Pain Assessment Document 04/26/17 13:46 SRE (Rec: 04/26/17 14:33 SRE [id number]) Pain Reassessment Is this a pain reassessment? Yes Sleep Is patient sleeping during reassessment? No Presence of Pain Presence of Pain Yes Pain Scale Used Pain Scale Used Numeric Location Left, Right or Bilateral Left Pain Location Body Site Back Description Description Intermittent - Scribe Statement Verónica Farfan Provider Scribe Attestation: All medical record entries made by the Scribe were at my direction and personally dictated by me. I have reviewed the chart and agree that the record accurately reflects my personal performance of the history, physical exam, medical decision making, and the department course for this patient. I have also personally directed, reviewed, and agree with the discharge instructions and disposition. Disposition/Present on Arrival - Present on Arrival Any Indicators Present on Arrival: No History of DVT/PE: No History of Uncontrolled Diabetes: No Urinary Catheter: No History of Decub. Ulcer: No History Surgical Site Infection Following: CABG - Mediastinitis - Disposition Have Diagnosis and Disposition been Completed?: Yes Diagnosis: Abdominal pain Disposition: HOME/ ROUTINE Disposition Time: 15:45 Patient Plan: Discharge Condition: GOOD Discharge Instructions (ExitCare): Abdominal Pain (ED), Diverticulitis (ED) Additional Instructions: PLEASE RETURN TO THE EMERGENCY DEPARTMENT FOR NEW OR WORSENING SYMPTOMS. RETURN RIGHT AWAY IF YOU CANNOT FOLLOW UP WITH YOUR PRIMARY CARE DOCTOR, CLINIC, OR SPECIALIST IN 1-2 DAYS. Prescriptions: Ciprofloxacin [Cipro] 500 mg PO Q12 #14 tab Metronidazole [Flagyl] 500 mg PO TID #21 tab Referrals: Silvano Gonzalez MD [Primary Care Provider] - Follow up with primary
[2017-04-26 13:29] LABS: BASO # 0.01 K/mm3 (0.0-2.0); BASO % 0.1 % (0.0-3.0); EOS % 0.2 % (1.5-5.0); GRAN # 7.01 (1.4-6.5); GRAN % 79.8 % (50.0-68.0); HEMOGLOBIN 10.3 gm/dL (14.0-18.0); LYMPH # 1.4 (1.2-3.4); LYMPH % 15.8 % (22.0-35.0); MEAN CORPUSCULAR HEMOGLOBIN 29.3 pg (25.0-35.0); MEAN CORPUSCULAR HGB CONC 32.6 g/dl (31.0-37.0); MONO # 0.4 (0.1-0.6); MONO % 4.1 % (1.0-6.0); PLATELET COUNT 330 10^3/uL (120.0-450.0); RBC 3.51 10^6/uL (3.5-6.1); RED CELL DISTRIBUTION WIDTH 13.8 % (11.5-14.5); WHITE BLOOD COUNT 8.8 10^3/ul (4.5-11.0)
[2017-04-26 13:41] LABS: INR 0.98 (0.93-1.08); PARTIAL THROMBOPLASTIN TIME 24.5 Seconds (23.7-30.8); PROTHROMBIN TIME 10.6 Seconds (9.9-11.8)
[2017-04-26 13:54] LABS: ALB/GLOB RATIO 1.8 (1.1-1.8); ALBUMIN 4.2 g/dL (3.0-4.8); ALT/SGPT 27 U/L (7-56); AST/SGOT 18 U/L (15-59); BLOOD UREA NITROGEN 25 mg/dL (7-21); CALCIUM 9.8 mg/dL (8.4-10.5); GFR AFRICAN-AMERICAN > 60; GFR NON-AFRICAN AMERICAN 51
[2017-04-26 14:23] LABS: URINE BILIRUBIN NEGATIVE (NEGATIVE); URINE BLOOD NEGATIVE (NEGATIVE); URINE GLUCOSE (UA) NEGATIVE (NEGATIVE); URINE LEUKOCYTE ESTERASE NEGATIVE Leu/uL (NEGATIVE); URINE NITRATE NEGATIVE (NEGATIVE); URINE PROTEIN TRACE mg/dL (<30 mg/dL); URINE UROBILINOGEN 0.2 E.U./dL (<1 E.U./dL)
[2017-04-26] MEDS ORDERED: Iohexol 350 MG/100 ML VIAL ONE (14:23)
[2017-04-26 14:24] LABS: URINE APPEARANCE CLEAR (CLEAR); URINE COLOR YELLOW (YELLOW)
[2017-04-26 14:51] VITALS: O2SAT 100
--- NOTE | 2017-04-26 15:04 | CT ---
PROCEDURE: CT Abdomen and Pelvis with contrast HISTORY: LLQ pain COMPARISON: None. TECHNIQUE: Contrast dose: 100 cc of Omni 350 Radiation dose: Total exam DLP = 417 mGy-cm. This CT exam was performed using one or more of the following dose reduction techniques: Automated exposure control, adjustment of the mA and/or kV according to patient size, and/or use of iterative reconstruction technique. FINDINGS: LOWER THORAX: Unremarkable. LIVER: Unremarkable. No gross lesion or ductal dilatation. GALLBLADDER AND BILE DUCTS: Unremarkable. PANCREAS: Unremarkable. No gross lesion or ductal dilatation. SPLEEN: Unremarkable. ADRENALS: Unremarkable. No mass. KIDNEYS AND URETERS: Unremarkable. No hydronephrosis. No solid mass. VASCULATURE: Unremarkable. No aortic aneurysm. BOWEL: There is mild diverticulitis of the descending colon near the junction with the sigmoid. Inflammatory changes are seen in the fat planes medial to the descending colon. There is no evidence of abscess or free air APPENDIX: Normal appendix. PERITONEUM: Unremarkable. No free fluid. No free air. LYMPH NODES: Unremarkable. No enlarged lymph nodes. BLADDER: Unremarkable. REPRODUCTIVE: Unremarkable. BONES: No acute fracture. OTHER FINDINGS: None. IMPRESSION: Mild diverticulitis of the descending colon
[2017-04-26 15:05] LABS: URINE BACTERIA TRACE (NEG); URINE EPITHELIAL CELLS 0 - 2 /hpf (0-5); URINE HYALINE CAST 0 - 2 /hpf; URINE RBC 0 - 2 /hpf (0-2); URINE WBC 0 - 2 /hpf (0-6)
[2017-04-26 16:13] VITALS: BP 158/87; PULSE 69; RESP 18; TEMP 98.2
--- NOTE | 2017-04-27 09:14 | CARD ---
APPROVED REPORT EKG Measurement Heart [id number] <Conclusion> Normal sinus rhythm Minimal voltage criteria for LVH, may be normal variant STTW changes c/w ischemia, V 5,6, new
== END 2017-04-26 16:14 | disposition home or self-care (01) ==
LOC: ED 11:55
DX: R10.9 Unspecified abdominal pain (principal)
CPT/HCPCS: 74177; 80053; 81001; 83690; 85025; 85610; 85730; 87040; 87205; 93005; 96361; 96374; 99283; J1885; J7040; Q9967

== ENCOUNTER 2017-04-27 21:48 | Inpatient (IN) | payer OTHER ==
--- NOTE | 2017-04-27 22:24 | ED PDOC ---
Arrival/HPI - General Chief Complaint: Medical Clearance Time Seen by Provider: 04/27/17 22:14 Historian: Patient - History of Present Illness Narrative History of Present Illness (Text): 04/27/17 22:23 Kennedy Wong is a 62 year old male, whose past medical history includes diabetes, hypertension, hyperlipidemia, and obesity, who presents to the Emergency department for positive blood cultures. Patient was seen in the Emergency department on 04/26/2017 for LLQ pain radiating to his flank and mild lightheadedness, had blood cultures performed, and was discharged home. Patient was called back to the ER today after there was positive growth of gram- negative rods on 2 of the cultures. Patient denies any fever, chills, chest pain , shortness of breath, nausea, vomiting, diarrhea, urinary symptoms, back pain, neck pain, headache, dizziness, or any other complaints. PMD: Dr. Gonzalez Symptom Onset: Gradual Symptom Course: Unchanged Activities at Onset: Rest, Light Context: Home Past Medical History - Provider Review Nursing Documentation Reviewed: Yes - Infectious Disease Hx of Infectious Diseases: None - Cardiac Hx KS: Yes Hx Hypertension: Yes Hx Pacemaker: No - Pulmonary Hx Respiratory Disorders: No Other/Comment: smokes 1ppd - Neurological Hx Paralysis: No - HEENT Hx HEENT Disorder: No - Renal Hx Renal Disorder: No - Endocrine/Metabolic Hx Endocrine Disorders: Yes Hx Diabetes Mellitus Type 2: Yes - Hematological/Oncological Hx Blood Transfusions: No Hx Blood Transfusion Reaction: No - Integumentary Hx Dermatological Disorder: No - Musculoskeletal/Rheumatological Hx Musculoskeletal Disorders: No - Gastrointestinal Hx Gastrointestinal Disorders: No - Genitourinary/Gynecological Hx Genitourinary Disorders: No - Psychiatric Hx Psychophysiologic Disorder: No Hx Substance Use: No Other/Comment: smokes 1ppd - Surgical History Hx Coronary Stent: Yes - Anesthesia Hx Anesthesia: Yes Hx Anesthesia Reactions: No Hx Malignant Hyperthermia: No Family/Social History - Physician Review Nursing Documentation Reviewed: Yes Family/Social History: Unknown Family HX Smoking Status: Heavy Smoker > 10 Cigarettes Daily Hx Alcohol Use: Yes (ON OCCASION) Hx Substance Use: No Allergies/Home Meds Allergies/Adverse Reactions: Allergies No Known Allergies Allergy (Verified 04/27/17 22:00) Home Medications: Home Meds Medication Instructions Recorded Confirmed Metformin ER [Glucophage XR] 1,000 mg PO BID 09/23/15 04/27/17 Lisinopril [Zestril] 10 mg PO DAILY 02/07/17 04/27/17 Simvastatin [Simvastatin] 10 mg PO DAILY 02/07/17 04/27/17 Aspirin [Ecotrin] 81 mg PO DAILY 03/03/17 04/27/17 Ticagrelor [Brilinta] 90 mg PO BID 03/03/17 04/27/17 Prednisone [Deltasone] 20 mg PO DAILY 04/27/17 04/27/17 Review of Systems - Physician Review All systems were reviewed & negative as marked: Yes - Review of Systems Constitutional: Normal. absent: Fevers Eyes: Normal ENT: Normal Respiratory: Normal. absent: SOB, Cough Cardiovascular: Normal. absent: Chest Pain Gastrointestinal: Normal. absent: Abdominal Pain, Nausea, Vomiting Genitourinary Male: Normal. absent: Dysuria, Frequency, Hematuria, Urinary Output Changes Musculoskeletal: Normal Skin: Normal. absent: Rash Neurological: Normal. absent: Headache, Dizziness Endocrine: Normal Hemo/Lymphatic: Normal Psychiatric: Normal Physical Exam Vital Signs Reviewed: Yes Vital Signs Temp Pulse Resp BP Pulse Ox 04/28/17 00:17 75 17 165/91 H 99 04/27/17 22:03 98 F 82 16 155/74 H 100 Temperature: Afebrile Blood Pressure: Normal Pulse: Regular Respiratory Rate: Normal Appearance: Positive for: Well-Appearing, Non-Toxic, Comfortable Pain Distress: None Mental Status: Positive for: Alert and Oriented X 3 - Systems Exam Head: Present: Atraumatic, Normocephalic Pupils: Present: PERRL Extroacular Muscles: Present: EOMI Conjunctiva: Present: Normal Mouth: Present: Moist Mucous Membranes Neck: Present: Normal Range of Motion Respiratory/Chest: Present: Clear to Auscultation, Good Air Exchange. No: Respiratory Distress, Accessory Muscle Use Cardiovascular: Present: Regular Rate and Rhythm, Normal S1, S2. No: Murmurs Abdomen: Present: Normal Bowel Sounds. No: Tenderness, Distention, Peritoneal Signs Back: Present: Normal Inspection Upper Extremity: Present: Normal Inspection. No: Cyanosis, Edema Lower Extremity: Present: Normal Inspection. No: Edema Neurological: Present: GCS=15, CN II-XII Intact, Speech Normal Skin: Present: Warm, Dry, Normal Color. No: Rashes Psychiatric: Present: Alert, Oriented x 3, Normal Insight, Normal Concentration Medical Decision Making ED Course and Treatment: 04/27/17 22:23 Impression: 62 year old male presents after positive blood cultures. Differential Diagnosis included but are not limited to: bacteremia Plan: -- EKG -- Labs, cardiac enzymes, amylase, lipase, blood cultures -- Urinalysis -- IV fluids -- Flagyl -- Zosyn -- Reassess and disposition Prior Visits: Notes and results from previous visits were reviewed. On 04/26/2017, pt was seen in the Emergency department for LLQ pain. Pt was d/c home. Progress Notes: Reviewed EKG, NSR at [address] bpm[address] Non-specific ST/T wave changes. 04/27/17 23:[address] Gonzalez, who is aware and agrees with plan. Requests Dr. Dwyer on consult. Pt will be admitted to [facility] for bacteremia. Pt in no acute distress. Discussed results and hospital admission plan with pt, who is aware and verbalizes understanding. - Lab Interpretations Microbiology Results: Microbiology Results 04/27/17 22:55 Blood-Venous Blood Culture - Preliminary NO GROWTH AFTER 24 HOURS 04/27/17 22:40 Blood-Venous Blood Culture - Preliminary NO GROWTH AFTER 24 HOURS Lab Results: 04/27/17 22:40 04/27/17 22:40 Lab Results 04/27/17 23:20: Urine Color Yellow, Urine Appearance Clear, Urine pH 6.0, Ur Specific [place] 1.020, Urine Protein 30 H, Urine Glucose (UA) Negative, Urine Ketones Negative, Urine Blood Trace-intact H, Urine Nitrate Negative, Urine Bilirubin Negative, Urine Urobilinogen 0.2, Ur Leukocyte Esterase Negative, Urine RBC 0 - 2, Urine WBC 0 - 2, Ur Epithelial Cells 0 - 2, Urine Bacteria Rare 04/27/17 22:40: Sodium 142, Potassium 5.0, Chloride 107, Carbon Dioxide 22, Anion Gap 18, BUN 22 H, Creatinine 1.7 H, Est GFR ( Amer) 50, Est GFR ( Non-Af Amer) 41, Random Glucose 217 H, Calcium 9.5, Total Bilirubin 0.2, AST 35 , ALT 29, Alkaline Phosphatase 56, Lactate Dehydrogenase 384, Total Creatine Kinase 292 H, CK-MB (CK-2) 2.3, CK-MB (CK-2) % Cancelled, Troponin I 0.02 D, Total Protein 7.3, Albumin 4.4, Globulin 2.8, Albumin/Globulin Ratio 1.6, Amylase 91, Lipase 62 04/27/17 22:40: PT 11.1, INR 1.03, APTT 25.9 04/27/17 22:40: WBC 7.8, RBC 3.30 L, Hgb 9.8 L, Hct 29.5 L, MCV 89.4, MCH 29.7, MCHC 33.2, RDW 13.7, Plt Count 304, MPV 9.6, Gran % 82.1 H, Lymph % (Auto) 13.7 L, Davidson % (Auto) 4.2, Eos % (Auto) 0.0 L, Baso % (Auto) 0.0, Gran # 6.39, Lymph # 1.1 L, Davidson # 0.3, Eos # 0.0, Baso # 0.00 I have reviewed the lab results: Yes - EKG Interpretation Interpreted by ED Physician: Yes Type: 12 lead EKG - Medication Orders Current Medication Orders: Acetaminophen (Tylenol 325mg Tab) 650 mg PO Q4H PRN PRN Reason: Fever >100.5 F Aspirin (Ecotrin) 81 mg PO DAILY [facility] Last Admin: 04/28/17 10:37 Dose: 81 mg Atorvastatin Calcium (Lipitor) 10 mg PO DAILY [facility] Last Admin: 04/28/17 10:37 Dose: 10 mg Metronidazole (Flagyl) 500 mg in 100 mls @ 100 mls/hr IVPB Q8 SRINIVASAN PRN Reason: Protocol Last Admin: 04/28/17 22:06 Dose: 100 mls/hr Cefepime HCl (Maxipime 2gm) 2 gm in 100 mls @ 100 mls/hr IVPB Q12 SRINIVASAN PRN Reason: Protocol Stop: 05/03/17 10:01 Last Admin: 04/28/17 23:19 Dose: 100 mls/hr Insulin Human Lispro (Humalog High) 0 units SC ACHS [facility] PRN Reason: Protocol Last Admin: 04/28/17 22:05 Dose: Not Given Non-Admin Reason: Blood Sugar Parameter Lisinopril (Zestril) 10 mg PO DAILY [facility] Last Admin: 04/28/17 10:37 Dose: 10 mg Nicotine (Nicoderm Cq) 1 patch TD DAILY [facility] Last Admin: 04/28/17 15:26 Dose: 1 patch Ticagrelor (Brilinta) 90 mg PO BID [facility] Last Admin: 04/28/17 17:36 Dose: 90 mg Discontinued Medications Metronidazole (Flagyl) 500 mg in 100 mls @ 100 mls/hr IVPB STAT STA PRN Reason: Protocol Stop: 04/27/17 23:26 Last Admin: 04/28/17 00:01 Dose: 100 mls/hr Sodium Chloride (Sodium Chloride 0.9%) 1,000 mls @ 100 mls/hr IV .Q10H STA Stop: 04/28/17 08:25 Last Admin: 04/27/17 22:45 Dose: 100 mls/hr Piperacillin Sod/Tazobactam Sod (Zosyn 3.375 In Ns 100ml) 100 mls @ 200 mls/hr IVPB STAT STA PRN Reason: Protocol Stop: 04/27/17 22:55 Last Admin: 04/27/17 22:45 Dose: 200 mls/hr Sodium Chloride (Sodium Chloride 0.9%) 1,000 mls @ 100 mls/hr IV .Q10H STA Stop: 04/28/17 11:09 Last Admin: 04/28/17 02:14 Dose: 100 mls/hr Metronidazole (Flagyl) 250 mg in 50 mls @ 100 mls/hr IV Q8 SRINIVASAN PRN Reason: Protocol Stop: 05/03/17 14:01 Metformin HCl (Glucophage Xr) 1,000 mg PO BID [facility] Last Admin: 04/28/17 10:44 Dose: - Scribe Statement The provider has reviewed the documentation as recorded by the Chivoibbrett George All medical record entries made by the Chivoibbrett were at my direction and personally dictated by me. I have reviewed the chart and agree that the record accurately reflects my personal performance of the history, physical exam, medical decision making, and the department course for this patient. I have also personally directed, reviewed, and agree with the discharge instructions and disposition. Disposition/Present on Arrival - Present on Arrival Any Indicators Present on Arrival: No History of DVT/PE: No History of Uncontrolled Diabetes: No Urinary Catheter: No History of Decub. Ulcer: No History Surgical Site Infection Following: CABG - Mediastinitis - Disposition Have Diagnosis and Disposition been Completed?: Yes Diagnosis: Bacteremia due to Gram-negative bacteria Disposition: HOSPITALIZED Disposition Time: 23:30 Condition: GOOD
[2017-04-27] MEDS ORDERED: Sodium Chloride 0.9% 1,000 ML IV STA (22:26)
[2017-04-27] MEDS ORDERED: Piperacillin/Tazobact 3.375 gm 100 ML IVPB STA (22:26)
[2017-04-27] MEDS ORDERED: metroNIDAZOLE IV 500 mg/100 ml 500 MG/100 ML BAG IVPB STA (22:27)
[2017-04-27 22:51] LABS: GRAN # 6.39 (1.4-6.5); GRAN % 82.1 % (50.0-68.0); HEMOGLOBIN 9.8 gm/dL (14.0-18.0); LYMPH # 1.1 (1.2-3.4); LYMPH % 13.7 % (22.0-35.0); MEAN CELL VOLUME 89.4 fL (80.0-105.0); MEAN CORPUSCULAR HEMOGLOBIN 29.7 pg (25.0-35.0); MEAN CORPUSCULAR HGB CONC 33.2 g/dl (31.0-37.0); MEAN PLATELET VOLUME 9.6 fl (7.0-11.0); MONO # 0.3 (0.1-0.6); MONO % 4.2 % (1.0-6.0); PLATELET COUNT 304 10^3/uL (120.0-450.0); RED CELL DISTRIBUTION WIDTH 13.7 % (11.5-14.5); WHITE BLOOD COUNT 7.8 10^3/ul (4.5-11.0)
[2017-04-27 23:01] LABS: INR 1.03 (0.93-1.08); PARTIAL THROMBOPLASTIN TIME 25.9 Seconds (23.7-30.8); PROTHROMBIN TIME 11.1 Seconds (9.9-11.8)
[2017-04-27 23:02] LABS: ALB/GLOB RATIO 1.6 (1.1-1.8); ALBUMIN 4.4 g/dL (3.0-4.8); CALCIUM 9.5 mg/dL (8.4-10.5)
[2017-04-27 23:14] LABS: TROPONIN I 0.02 ng/mL
[2017-04-27 23:26] LABS: CK-MB 2.3 ng/mL (0.0-3.6)
[2017-04-28 00:14] LABS: URINE BILIRUBIN NEGATIVE (NEGATIVE); URINE BLOOD TRACE-INTACT (NEGATIVE); URINE GLUCOSE (UA) NEGATIVE (NEGATIVE); URINE LEUKOCYTE ESTERASE NEGATIVE Leu/uL (NEGATIVE); URINE NITRATE NEGATIVE (NEGATIVE); URINE PROTEIN 30 mg/dL (<30 mg/dL); URINE UROBILINOGEN 0.2 E.U./dL (<1 E.U./dL)
[2017-04-28 00:17] LABS: URINE APPEARANCE CLEAR (CLEAR); URINE COLOR YELLOW (YELLOW)
[2017-04-28 00:32] LABS: URINE BACTERIA RARE (NEG); URINE EPITHELIAL CELLS 0 - 2 /hpf (0-5); URINE RBC 0 - 2 /hpf (0-2); URINE WBC 0 - 2 /hpf (0-6)
[2017-04-28] MEDS ORDERED: Sodium Chloride 0.9% 1,000 ML IV STA (01:10)
[2017-04-28 03:30] VITALS: BMI 26.9
[2017-04-28] MEDS: metroNIDAZOLE IV 500 mg/100 ml 500 MG/100 ML BAG IVPB SCH ×3 (08:33→22:06)
--- NOTE | 2017-04-28 10:07 | CARD ---
APPROVED REPORT EKG Measurement Heart [id number] <Conclusion> Normal sinus rhythm Minimal voltage criteria for LVH, may be normal variant
[2017-04-28] MEDS: Cefepime IV 2 gm in NS 2 GM/100 ML BAG IVPB SCH ×2 (10:36→23:19)
--- NOTE | 2017-04-28 11:49 | CP.PCM.CON ---
History of Present Illness - History of Present Illness History of Present Illness: 62 year old male with PMH of HTN, DM, dyslipidemia, significant smoking history was brought back to [facility] after he was found to have positive blood cx from 04/26/2017. At that time, he presented to ED with LLQ pain and was found to have sigmoid diverticulitis. The patient still continues although better. He currently denies fever or chills, no nausea or vomiting, no diarrhea , no chest pain, no SOB. Infectious Diseases consult is requested to further evaluate and manage. Review of Systems - Review of Systems All systems: reviewed and no additional remarkable complaints except (as per HPI ) Past Patient History - Infectious Disease Hx of Infectious Diseases: None - Past Social History Smoking Status: Heavy Smoker > 10 Cigarettes Daily - CARDIAC Hx Heart Attack: Yes Hx Hypertension: Yes Hx Pacemaker: No - PULMONARY Hx Respiratory Disorders: No Other/Comment: smokes 1ppd - NEUROLOGICAL Hx Paralysis: No - HEENT Hx HEENT Problems: No - RENAL Hx Chronic Kidney Disease: No - ENDOCRINE/METABOLIC Hx Endocrine Disorders: Yes Hx Diabetes Mellitus Type 2: Yes - HEMATOLOGICAL/ONCOLOGICAL Hx Blood Transfusions: No Hx Blood Transfusion Reaction: No - INTEGUMENTARY Hx Dermatological Problems: No - MUSCULOSKELETAL/RHEUMATOLOGICAL Hx Musculoskeletal Disorders: No - GASTROINTESTINAL Hx Gastrointestinal Disorders: No - GENITOURINARY/GYNECOLOGICAL Hx Genitourinary Disorders: No - PSYCHIATRIC Hx Psychophysiologic Disorder: No Hx Substance Use: No Other/Comment: smokes 1ppd - SURGICAL HISTORY Hx Coronary Stent: Yes - ANESTHESIA Hx Anesthesia: Yes Hx Anesthesia Reactions: No Hx Malignant Hyperthermia: No Meds Allergies/Adverse Reactions: Allergies Allergy/AdvReac Type Severity Reaction Status Date / Time No Known Allergies Allergy Verified 04/27/17 22:00 - Medications Medications: Current Medications Acetaminophen (Tylenol 325mg Tab) 650 mg PO Q4H PRN PRN Reason: Fever >100.5 F Sodium Chloride (Sodium Chloride 0.9%) 1,000 mls @ 100 mls/hr IV .Q10H STA Stop: 04/28/17 08:25 Last Admin: 04/27/17 22:45 Dose: 100 mls/hr Sodium Chloride (Sodium Chloride 0.9%) 1,000 mls @ 100 mls/hr IV .Q10H STA Stop: 04/28/17 11:09 Last Admin: 04/28/17 02:14 Dose: 100 mls/hr Physical Exam - Constitutional Appears: Non-toxic, No Acute Distress - Head Exam Head Exam: NORMAL INSPECTION - ENT Exam ENT Exam: Mucous Membranes Moist - Neck Exam Neck exam: Negative for: Meningismus - Respiratory Exam Respiratory Exam: Decreased Breath Sounds - Cardiovascular Exam Cardiovascular Exam: +S1, +S2 - GI/Abdominal Exam GI & Abdominal Exam: Soft. absent: Tenderness Results - Vital Signs Recent Vital Signs: Last Vital Signs Temp 97.7 F 04/28/17 02:15 Pulse 68 04/28/17 03:34 Resp 18 04/28/17 03:34 BP 153/93 H 04/28/17 03:34 Pulse Ox 100 04/28/17 03:34 - Labs Result Diagrams: 04/27/17 22:40 04/27/17 22:40 Assessment & Plan - Assessment and Plan (Free Text) Plan: Assessment Acute diverticulitis with associated gram negative bacilli bacteremia HTN DM dyslipidemia significant smoking history Plan Started patient on Cefepime and Flagyl pending identification and sensitivities of the gram negative bacilli in the blood will monitor clinically
[2017-04-28] MEDS ORDERED: metroNIDAZOLE IV 250mg/50 ml 250 MG/50 ML BAG IV SCH (14:00)
[2017-04-28] MEDS: Insulin Lispro (HUMAlog) HIGH Coverage SC SCH ×2 (17:30→22:05)
[2017-04-29] MEDS: metroNIDAZOLE IV 500 mg/100 ml 500 MG/100 ML BAG IVPB SCH ×3 (05:07→23:26)
[2017-04-29 07:34] LABS: BASO # 0.01 K/mm3 (0.0-2.0); BASO % 0.2 % (0.0-3.0); EOS % 0.5 % (1.5-5.0); GRAN # 3.92 (1.4-6.5); HEMOGLOBIN 9.4 gm/dL (14.0-18.0); LYMPH # 2.1 (1.2-3.4); LYMPH % 32.3 % (22.0-35.0); MEAN CELL VOLUME 89.7 fL (80.0-105.0); MEAN CORPUSCULAR HEMOGLOBIN 29.3 pg (25.0-35.0); MEAN CORPUSCULAR HGB CONC 32.6 g/dl (31.0-37.0); MEAN PLATELET VOLUME 9.6 fl (7.0-11.0); MONO # 0.5 (0.1-0.6); PLATELET COUNT 288 10^3/uL (120.0-450.0); RBC 3.21 10^6/uL (3.5-6.1); RED CELL DISTRIBUTION WIDTH 13.5 % (11.5-14.5); WHITE BLOOD COUNT 6.6 10^3/ul (4.5-11.0)
[2017-04-29 07:53] LABS: ALB/GLOB RATIO 1.5 (1.1-1.8); ALBUMIN 3.5 g/dL (3.0-4.8); ALT/SGPT 30 U/L (7-56); AST/SGOT 31 U/L (15-59); BLOOD UREA NITROGEN 11 mg/dL (7-21); CALCIUM 8.7 mg/dL (8.4-10.5); GFR AFRICAN-AMERICAN > 60; GFR NON-AFRICAN AMERICAN 56
[2017-04-29] MEDS: Insulin Lispro (HUMAlog) HIGH Coverage SC SCH ×4 (08:54→22:55)
[2017-04-29 09:21] VITALS: RESP 18
[2017-04-29] MEDS: Cefepime IV 2 gm in NS 2 GM/100 ML BAG IVPB SCH ×2 (09:30→22:25)
--- NOTE | 2017-04-29 11:52 | CP.PCM.PN ---
Subjective - Date & Time of Evaluation Date of Evaluation: 04/29/17 Time of Evaluation: 10:35 - Subjective Subjective: Abdominal pain has improved, no diarrhea, no fevers overnight. Objective - Vital Signs/Intake and Output Vital Signs (last 24 hours): Temp Pulse Resp BP Pulse Ox 97.9 F 62 20 139/77 99 04/28/17 15:47 04/28/17 15:47 04/28/17 15:47 04/28/17 15:47 04/28/17 15:47 Intake and Output: 04/29/17 04/29/17 06:59 18:59 Intake Total 660 Output Total 500 Balance 160 - Medications Medications: Current Medications Acetaminophen (Tylenol 325mg Tab) 650 mg PO Q4H PRN PRN Reason: Fever >100.5 F Last Admin: 04/29/17 05:06 Dose: 650 mg Aspirin (Ecotrin) 81 mg PO DAILY [facility] Last Admin: 04/28/17 10:37 Dose: 81 mg Atorvastatin Calcium (Lipitor) 10 mg PO DAILY [facility] Last Admin: 04/28/17 10:37 Dose: 10 mg Metronidazole (Flagyl) 500 mg in 100 mls @ 100 mls/hr IVPB Q8 SRINIVASAN PRN Reason: Protocol Last Admin: 04/29/17 05:07 Dose: 100 mls/hr Cefepime HCl (Maxipime 2gm) 2 gm in 100 mls @ 100 mls/hr IVPB Q12 SRINIVASAN PRN Reason: Protocol Stop: 05/03/17 10:01 Last Admin: 04/28/17 23:19 Dose: 100 mls/hr Insulin Human Lispro (Humalog High) 0 units SC ACHS SRINIVASAN PRN Reason: Protocol Last Admin: 04/28/17 22:05 Dose: Not Given Lisinopril (Zestril) 10 mg PO DAILY [facility] Last Admin: 04/28/17 10:37 Dose: 10 mg Nicotine (Nicoderm Cq) 1 patch TD DAILY [facility] Last Admin: 04/28/17 15:26 Dose: 1 patch Ticagrelor (Brilinta) 90 mg PO BID [facility] Last Admin: 04/28/17 17:36 Dose: 90 mg - Labs Labs: 04/29/17 06:45 04/29/17 06:45 PT 11.1 Seconds (9.9-11.8) 04/27/17 22:40 INR 1.03 (0.93-1.08) 04/27/17 22:40 APTT 25.9 Seconds (23.7-30.8) 04/27/17 22:40 - Constitutional Appears: Non-toxic, No Acute Distress - Head Exam Head Exam: NORMAL INSPECTION - ENT Exam ENT Exam: Mucous Membranes Moist - Neck Exam Neck Exam: absent: Meningismus - Respiratory Exam Respiratory Exam: Decreased Breath Sounds - Cardiovascular Exam Cardiovascular Exam: +S1, +S2 - GI/Abdominal Exam GI & Abdominal Exam: Soft. absent: Tenderness Assessment and Plan - Assessment and Plan (Free Text) Plan: Assessment Acute diverticulitis with associated gram negative bacilli bacteremia HTN DM dyslipidemia significant smoking history Plan continue on Cefepime and Flagyl day 2 pending identification and sensitivities of the gram negative bacilli in the blood will continue to monitor clinically
[2017-04-30] MEDS: metroNIDAZOLE IV 500 mg/100 ml 500 MG/100 ML BAG IVPB SCH (05:23)
[2017-04-30] MEDS: Insulin Lispro (HUMAlog) HIGH Coverage SC SCH ×2 (08:35→12:19)
[2017-04-30 09:54] VITALS: BP 162/88; PULSE 67
[2017-04-30] MEDS ORDERED: cefTRIAXone 1 gm 1 GM/100 ML BAG IVPB SCH (10:00)
[2017-04-30 10:32] VITALS: TEMP 98; O2SAT 97
--- NOTE | 2017-04-30 11:21 | CP.PCM.PN ---
Subjective - Date & Time of Evaluation Date of Evaluation: 04/30/17 Time of Evaluation: 10:30 - Subjective Subjective: Feeling better, no abdominal pain, no nausea or vomiting, tolerating solid foods. No fevers overnight. Objective - Vital Signs/Intake and Output Vital Signs (last 24 hours): Temp Pulse Resp BP Pulse Ox 98.1 F 66 18 154/92 H 100 04/29/17 07:30 04/29/17 09:29 04/29/17 07:30 04/29/17 09:29 04/29/17 07:30 Intake and Output: 04/30/17 04/30/17 06:59 18:59 Intake Total 240 Output Total 1000 Balance -760 - Medications Medications: Current Medications Acetaminophen (Tylenol 325mg Tab) 650 mg PO Q4H PRN PRN Reason: Fever >100.5 F Last Admin: 04/29/17 05:06 Dose: 650 mg Aspirin (Ecotrin) 81 mg PO DAILY [facility] Last Admin: 04/29/17 09:29 Dose: 81 mg Atorvastatin Calcium (Lipitor) 10 mg PO DAILY [facility] Last Admin: 04/29/17 09:29 Dose: 10 mg Metronidazole (Flagyl) 500 mg in 100 mls @ 100 mls/hr IVPB Q8 SRINIVASAN PRN Reason: Protocol Last Admin: 04/30/17 05:23 Dose: 100 mls/hr Cefepime HCl (Maxipime 2gm) 2 gm in 100 mls @ 100 mls/hr IVPB Q12 SRINIVASAN PRN Reason: Protocol Stop: 05/03/17 10:01 Last Admin: 04/29/17 22:25 Dose: 100 mls/hr Insulin Human Lispro (Humalog High) 0 units SC ACHS [facility] PRN Reason: Protocol Last Admin: 04/30/17 08:35 Dose: Not Given Lisinopril (Zestril) 10 mg PO DAILY [facility] Last Admin: 04/29/17 09:29 Dose: 10 mg Nicotine (Nicoderm Cq) 1 patch TD DAILY [facility] Last Admin: 04/29/17 09:29 Dose: 1 patch Ticagrelor (Brilinta) 90 mg PO BID [facility] Last Admin: 04/29/17 17:23 Dose: 90 mg - Labs Labs: 04/29/17 06:45 04/29/17 06:45 PT 11.1 Seconds (9.9-11.8) 04/27/17 22:40 INR 1.03 (0.93-1.08) 04/27/17 22:40 APTT 25.9 Seconds (23.7-30.8) 04/27/17 22:40 - Constitutional Appears: Non-toxic, No Acute Distress - Head Exam Head Exam: NORMAL INSPECTION - ENT Exam ENT Exam: Mucous Membranes Moist - Neck Exam Neck Exam: absent: Lymphadenopathy, Meningismus - Respiratory Exam Respiratory Exam: Decreased Breath Sounds - Cardiovascular Exam Cardiovascular Exam: +S1, +S2 - GI/Abdominal Exam GI & Abdominal Exam: Soft. absent: Tenderness Assessment and Plan - Assessment and Plan (Free Text) Plan: Assessment Acute diverticulitis with associated Bacteroides sphlanchnicus bacteremia HTN DM dyslipidemia significant smoking history Plan on Cefepime and Flagyl day 3 - since he is now tolerating solid food intake, we can switch patient to PO Flagyl and PO Vantin for another 7-10 days with outpatient follow up with PMD and GI - patient will eventually need a colonoscopy as an outpatient - discussed this with the patient
== END 2017-04-30 15:24 | disposition home or self-care (01) | DRG 872 ==
LOC: ED 21:48 → ERH 04-28 00:10 → 5RSO 04-28 02:03
PROVIDERS: ADMIT Internal Medicine; ATTEND Internal Medicine
DX: A41.51 Sepsis due to Escherichia coli [E. coli] (principal); K57.32 Diverticulitis of large intestine without perforation or abscess without bleeding; I10 Essential (primary) hypertension; I25.10 Atherosclerotic heart disease of native coronary artery without angina pectoris; E11.9 Type 2 diabetes mellitus without complications; E78.5 Hyperlipidemia, unspecified; Z87.891 Personal history of nicotine dependence; Z95.5 Presence of coronary angioplasty implant and graft; Z79.84 Long term (current) use of oral hypoglycemic drugs

== ENCOUNTER 2017-12-21 09:57 | Inpatient (IN) | payer OTHER ==
--- NOTE | 2017-12-21 10:40 | ED PDOC ---
Arrival/HPI - General Chief Complaint: Lower Extremity Problem/Injury Time Seen by Provider: 12/21/17 10:27 Historian: Patient - History of Present Illness Narrative History of Present Illness (Text): 12/21/17 10:37 A 62 year old male, whose past medical history includes diabetes and peripheral vascular disease, presents to the emergency department complaining of increased pain and redness to both great toes, left greater than right. Patient was sent to the emergency department for evaluation of cellulitis to toes. Patient is a heavy smoker. Patient denies any other complaints at this time. PMD: Dr. Gonzalez [employer] Psychologist: Dr. Villanueva Symptom Onset: Sudden Symptom Course: Unchanged Activities at Onset: Rest Context: Home Past Medical History - Provider Review Nursing Documentation Reviewed: Yes - Infectious Disease Hx of Infectious Diseases: None - Cardiac Hx Cardiac Disorders: Yes Hx Hypertension: Yes - Pulmonary Hx Respiratory Disorders: Yes Hx Chronic Obstructive Pulmonary Disease (COPD): Yes - Neurological Hx Neurological Disorder: Yes Hx Dizziness: Yes (occassional) Hx Paralysis: No - HEENT Hx HEENT Disorder: No Other/Comment: wears glasses - Renal Hx Renal Disorder: No - Endocrine/Metabolic Hx Endocrine Disorders: Yes Hx Diabetes Mellitus Type 2: Yes - Hematological/Oncological Hx Blood Disorders: No Hx Blood Transfusions: No Hx Blood Transfusion Reaction: No - Integumentary Hx Dermatological Disorder: Yes Hx Cellulitis: Yes - Musculoskeletal/Rheumatological Hx Musculoskeletal Disorders: Yes Hx Arthritis: Yes - Gastrointestinal Hx Gastrointestinal Disorders: No - Genitourinary/Gynecological Hx Genitourinary Disorders: No - Psychiatric Hx Psychophysiologic Disorder: No Hx Substance Use: No - Surgical History Hx Coronary Stent: Yes (X2) - Anesthesia Hx Anesthesia: Yes Hx Anesthesia Reactions: No Hx Malignant Hyperthermia: No Family/Social History - Physician Review Nursing Documentation Reviewed: Yes Family/Social History: No Known Family HX Smoking Status: Current Some Days Smoker Hx Alcohol Use: Yes (ON OCCASION) Hx Substance Use: No Allergies/Home Meds Allergies/Adverse Reactions: Allergies No Known Allergies Allergy (Verified 12/21/17 10:03) Home Medications: Home Meds Medication Instructions Recorded Confirmed Metformin ER [Glucophage XR] 500 mg PO BID 09/23/15 12/21/17 Lisinopril [Zestril] 10 mg PO DAILY 02/07/17 12/21/17 Simvastatin 10 mg PO DAILY 02/07/17 12/21/17 Aspirin [Ecotrin] 81 mg PO DAILY 03/03/17 12/21/17 Ticagrelor [Brilinta] 90 mg PO BID 03/03/17 12/21/17 Mometasone/Formoterol [Dulera 200 2 puff IH DAILY PRN 11/13/17 12/21/17 Mcg/5 Mcg Inhaler] Acetaminophen with Codeine 1 tab PO Q8 PRN 12/21/17 12/21/17 [Tylenol with Codeine #3 Tablet] Review of Systems - Review of Systems Constitutional: Fatigue. absent: Fevers Eyes: absent: Vision Changes Respiratory: absent: SOB, Cough Cardiovascular: absent: Chest Pain, Palpitations, LUCIANO Gastrointestinal: absent: Abdominal Pain, Nausea Genitourinary Male: absent: Dysuria Musculoskeletal: absent: Back Pain Skin: Cellulitis (redness and pain to bilateral great toes) Neurological: absent: Headache, Focal Weakness Hemo/Lymphatic: absent: Easy Bleeding Physical Exam - Physical Exam Narrative Physical Exam (Text): 12/21/17 10:38 Head: Atraumatic. Normocephalic. Eyes: PERRL. EOMI. Conjunctivae are not pale. ENT: Mucous membranes are moist and intact. Oropharynx is clear and symmetric. Neck: Supple. Full ROM. No JVD. No lymphadenopathy. Cardiovascular: Regular rate. Regular rhythm. Systolic murmur. Distal foot pulses difficult to palpate. Pulmonary/Chest: No evidence of respiratory distress. Clear to auscultation bilaterally. No wheezing, rales or rhonchi. Abdominal: Soft and non-distended. There is no tenderness. No rebound, guarding, or rigidity. No organomegaly. Good bowel sounds. Back: No CVA tenderness. Extremities: No edema. No cyanosis. No clubbing. Full range of motion in all extremities. No calf tenderness. Skin: Skin is warm and dry. No petechiae. No purpura. Neurological: Alert, awake, and oriented to person, place, time, and situation. Normal speech. Psychiatric: Good eye contact. Normal interaction, affect, and behavior. Vital Signs Reviewed: Yes Vital Signs Temp Pulse Resp BP Pulse Ox 12/21/17 13:13 70 18 154/86 H 12/21/17 13:00 92 H 18 146/89 100 12/21/17 11:49 70 18 154/86 H 100 12/21/17 11:41 98.1 F 81 18 156/84 H 100 12/21/17 10:06 98.1 F 94 H 17 188/88 H 96 Temperature: Afebrile Blood Pressure: Hypertensive Pulse: Regular Respiratory Rate: Normal Appearance: Positive for: Well-Appearing, Non-Toxic, Uncomfortable Pain Distress: Mild Mental Status: Positive for: Alert and Oriented X 3 Medical Decision Making ED Course and Treatment: 12/21/17 10:38 Impression: A 62 year old male with increased pain and redness to both great toes, left greater than right. Plan: -- EKG -- chest xray -- labs -- Radiology of great toe, left and right foot -- Reassess and disposition Prior Visits: Notes and results from previous visits were reviewed. Patient was last seen in the emergency department on 11/28/17 for evaluation of non healing diabetic lesions on bilateral big toes. Patient was admitted to the hospital for acute renal failure and diabetic foot ulcer. Progress Notes: Spoke with PMD in emergency department, who advised patient to be admitted. Patient was recently seen by PMD and there is persistent redness and pain despite outpatient antibiotic therapy. There is hx of peripheral vascular disease, by history exam do not suspect ACUTE arterial occlusion. IV pain medication given. IV antibiotics initiated. 12/21/17 12:24 CHEST RADIOGRAPH, 1 VIEW Creator : Toby Sauceda MD IMPRESSION: No active disease. 12/21/17 12:25 Right Foot Radiographs Creator : Toby Sauceda MD IMPRESSION: No evidence of osteomyelitis 12/21/17 12:27 Left Foot great toe Radiographs Creator : Toby Sauceda MD IMPRESSION: Negative study Patient's labs reveal renal insufficiency, he has recent history of this, it is similar to recent results but trending recently valeria. K is elevated. This was repeated and found to be accurate. Patient placed on monitor, no arrhythmias noted. No history of palpiations, chest pain or shortness of breath. EKG with no hyperacute t waves noted. High dose albuterol, D50/insulin, sodium bicarbonate, and kayexalate ordered. Reviewed labs with Dr. Gonzalez, repeat K ordered to be repeated at 15:30 to be endorsed to be followed-up by Dr. Gonzalez. 12/21/17 14:11 - Lab Interpretations Lab Results: 12/21/17 10:48 12/21/17 11:35 Lab Results 12/21/17 11:35: Potassium 6.7 H* 12/21/17 10:48: Sodium 140, Chloride 109 H, Potassium 6.7 H* D, Carbon Dioxide 18 L, Anion Gap 21 H, BUN 44 H, Creatinine 2.1 H, Est GFR ( Amer) 39, Est GFR (Non-Af Amer) 32, Random Glucose 237 H, Calcium 9.8, Total Bilirubin 0.3 , AST 42, ALT 50, Alkaline Phosphatase 58, Total Protein 7.3, Albumin 4.5, Globulin 2.8, Albumin/Globulin Ratio 1.6 12/21/17 10:48: PT 11.2, INR 0.97, APTT 29.1 12/21/17 10:48: WBC 7.1, RBC 3.93, Hgb 11.2 L, Hct 34.4 L, MCV 87.5, MCH 28.5, MCHC 32.6, RDW 16.1 H, Plt Count 313, MPV 10.4, Gran % 59.6, Lymph % (Auto) 35.6 H, [place] % (Auto) 4.1, Eos % (Auto) 0.6 L, Baso % (Auto) 0.1, Gran # 4.21, Lymph # (Auto) 2.5, [place] # (Auto) 0.3, Eos # (Auto) 0.0, Baso # (Auto) 0.01 12/21/17 10:48: pO2 35, VBG pH 7.24 L, VBG pCO2 47.0, VBG HCO3 20.1 L, VBG Total CO2 21.5 L, VBG O2 Sat (Calc) 70.7 H, VBG Base Excess -7.3 L, VBG Potassium 6.8 H*, Sodium 135.0, Chloride 110.0 H, Glucose 245 H, Lactate 1.6, FiO2 21.0, Venous Blood Potassium 6.8 H* 12/21/17 10:37: POC Glucose (mg/dL) 243 H - RAD Interpretation Radiology Orders: 12/21/17 10:37 CHEST ONE VIEW [RAD] Stat 12/21/17 10:40 FOOT LEFT GREAT TOE ROUTINE [RAD] Stat FOOT RIGHT GREAT TOE ROUTINE [RAD] Stat Cannon Crewmember: Radiologist - EKG Interpretation EKG Interpretation (Text): 12/21/17 14:14 EKG at 10:49 normal sinus rhythm with nonspecific t wave abnormality Interpreted by ED Physician: Yes Type: 12 lead EKG - Medication Orders Current Medication Orders: Discontinued Medications Albuterol Sulfate (Albuterol 0.5% Inhal Beckie (5 Mg/ Ml) 20 Ml) 10 mg IH STAT STA Stop: 12/21/17 11:33 Last Admin: 12/21/17 12:14 Dose: 10 mg Dextrose (Dextrose 50% Inj) 50 ml IVP ONCE ONE Stop: 12/21/17 12:05 Last Admin: 12/21/17 12:15 Dose: 50 ml IVP Administration Document 12/21/17 12:15 EWO (Rec: 12/21/17 12:15 DOMONIQUE [id number]) Charges for Administration # of IVP Administrations 1 Ceftriaxone Sodium (Rocephin 1 Gram Ivpb) 1 gm in 100 mls @ 200 mls/hr IVPB ONCE STA PRN Reason: Protocol Stop: 12/21/17 12:34 Last Admin: 12/21/17 12:15 Dose: 200 mls/hr eMAR Start Stop Document 12/21/17 12:15 EWO (Rec: 12/21/17 12:15 [facility] [id number]) Intravenous Solution Start Date 12/21/17 Start Time 12:15 End Date 12/21/17 End time 12:45 Total Infusion Time 30 Insulin Human Regular (Humulin R) 10 units IV STAT STA Stop: 12/21/17 12:05 Last Admin: 12/21/17 12:15 Dose: 10 units eMAR Start Stop Document 12/21/17 12:15 EWO (Rec: 12/21/17 12:15 [facility] [id number]) Intravenous Solution Start Date 12/21/17 Start Time 12:15 End Date 12/21/17 End time 12:16 Total Infusion Time 1 MAR Blood Glucose Document 12/21/17 12:15 EWO (Rec: 12/21/17 12:15 [facility] [id number]) Blood Glucose Finger Stick Blood Glucose (70-120) 143 Morphine Sulfate (Morphine) 2 mg IVP STAT STA Stop: 12/21/17 11:19 Last Admin: 12/21/17 11:44 Dose: 2 mg MAR Pain Assessment Document 12/21/17 11:44 EWO (Rec: 12/21/17 11:45 [facility] [id number]) Pain Reassessment Is this a pain reassessment? No Sleep Is patient sleeping during reassessment? No Presence of Pain Presence of Pain Yes Pain Scale Used Pain Scale Used Numeric Location Left, Right or Bilateral Bilateral Pain Location Body Site 1st Toe Description Description Constant Intensity of Pain at present 7 Pain Behavior Moaning IVP Administration Document 12/21/17 11:44 EWO (Rec: 12/21/17 11:45 [facility] [id number]) Charges for Administration # of IVP Administrations 1 Sodium Bicarbonate (Sodium Bicarbonate 8.4% (50 Meq) Syringe) 50 meq IVP ONCE ONE Stop: 12/21/17 12:50 Last Admin: 12/21/17 13:11 Dose: 50 meq IVP Administration Document 12/21/17 13:11 GMI (Rec: 12/21/17 13:11 GMI [facility]-[id number]) Charges for Administration # of IVP Administrations 1 Sodium Polystyrene Sulfonate (Kayexalate Susp) 30 gm PO STAT STA Stop: 12/21/17 12:05 Last Admin: 12/21/17 12:16 Dose: 30 gm - Scribe Statement The provider has reviewed the documentation as recorded by the Wiliam Perkins Provider Scribe Attestation: All medical record entries made by the Chivoibbrett were at my direction and personally dictated by me. I have reviewed the chart and agree that the record accurately reflects my personal performance of the history, physical exam, medical decision making, and the department course for this patient. I have also personally directed, reviewed, and agree with the discharge instructions and disposition. Disposition/Present on Arrival - Present on Arrival Any Indicators Present on Arrival: Yes History of DVT/PE: No History of Uncontrolled Diabetes: Yes Urinary Catheter: No History of Decub. Ulcer: No History Surgical Site Infection Following: None - Disposition Have Diagnosis and Disposition been Completed?: Yes Diagnosis: Hyperkalemia, Renal insufficiency, Cellulitis, toe Disposition: HOSPITALIZED Disposition Time: 13:50 Patient Plan: Admission, Telemetry Condition: FAIR
[2017-12-21 10:53] LABS: VENOUS BLOOD GAS BASE EXCESS -7.3 mmol/L (0.0-2.0); VENOUS BLOOD GAS PO2 35 mm/Hg (30-55); VENOUS BLOOD PH 7.24 (7.32-7.43)
[2017-12-21 10:54] LABS: BASO # 0.01 K/mm3 (0.0-2.0); BASO % 0.1 % (0.0-3.0); EOS % 0.6 % (1.5-5.0); GRAN # 4.21 (1.4-6.5); GRAN % 59.6 % (50.0-68.0); HEMOGLOBIN 11.2 g/dL (14.0-18.0); LYMPH # 2.5 (1.2-3.4); LYMPH % 35.6 % (22.0-35.0); MEAN CELL VOLUME 87.5 fl (80.0-105.0); MEAN CORPUSCULAR HEMOGLOBIN 28.5 pg (25.0-35.0); MEAN CORPUSCULAR HGB CONC 32.6 g/dl (31.0-37.0); MEAN PLATELET VOLUME 10.4 fl (7.0-11.0); MONO # 0.3 (0.1-0.6); MONO % 4.1 % (1.0-6.0); RBC 3.93 10^6/uL (3.5-6.1); RED CELL DISTRIBUTION WIDTH 16.1 % (11.5-14.5); WHITE BLOOD COUNT 7.1 10^3/ul (4.5-11.0)
[2017-12-21 11:02] LABS: INR 0.97 (0.93-1.08); PARTIAL THROMBOPLASTIN TIME 29.1 Seconds (25.1-36.5); PROTHROMBIN TIME 11.2 SECONDS (9.4-12.5)
[2017-12-21 11:17] LABS: ALB/GLOB RATIO 1.6 (1.1-1.8); ALBUMIN 4.5 g/dL (3.0-4.8); CALCIUM 9.8 mg/dL (8.4-10.5)
[2017-12-21] MEDS ORDERED: Morphine 2 mg/ml ISec IVP STA (11:18)
[2017-12-21] MEDS ORDERED: Albuterol 0.5% Inhal Sol (5 mg/ ml) 20 ml IH STA (11:32)
[2017-12-21] MEDS ORDERED: Sod Polystyrene Sulf 15 gm/60 ml Susp PO STA (12:04)
[2017-12-21] MEDS ORDERED: Dextrose 50% SYRINGE Inj (50 ml) IVP ONE (12:04)
[2017-12-21] MEDS ORDERED: Insulin Regular 1 UNITS/0.01 ML ML IV STA (12:04)
[2017-12-21] MEDS ORDERED: cefTRIAXone 1 gm 1 GM/100 ML BAG IVPB STA (12:05)
--- NOTE | 2017-12-21 12:22 | RAD ---
PROCEDURE: CHEST RADIOGRAPH, 1 VIEW HISTORY: admission, cellulitis COMPARISON: 02/07/2017 FINDINGS: LUNGS: Clear. PLEURA: No pneumothorax or pleural fluid seen. CARDIOVASCULAR: Normal. OSSEOUS STRUCTURES: No significant abnormalities. VISUALIZED UPPER ABDOMEN: Normal. OTHER FINDINGS: None. IMPRESSION: No active disease.
--- NOTE | 2017-12-21 12:24 | RAD ---
PROCEDURE: Right Foot Radiographs. HISTORY: eval for osteomyelitis COMPARISON: None. FINDINGS: BONES: Normal. No fracture. JOINTS: Normal. SOFT TISSUES: Normal. OTHER FINDINGS: None. IMPRESSION: No evidence of osteomyelitis
--- NOTE | 2017-12-21 12:26 | RAD ---
PROCEDURE: Left Foot great toe Radiographs. HISTORY: eval for osteomyelitis COMPARISON: None. FINDINGS: BONES: Normal. No fracture. JOINTS: Normal. SOFT TISSUES: Normal. OTHER FINDINGS: None. IMPRESSION: Negative study
[2017-12-21] MEDS ORDERED: Sodium Bicarbonate (8.4%) 50 Meq Syringe IVP ONE ×2 (12:49→13:10)
[2017-12-21 13:22] VITALS: BMI 24.7
--- NOTE | 2017-12-21 15:31 | CP.PCM.CON ---
<Ayo Tirado - Last Filed: 12/21/17 15:28> History of Present Illness - History of Present Illness History of Present Illness: Podiatry Consult Note- Dr. Sheikh 62 year old male seen in ER concerning bilateral (b/l) great toe redness and swelling. Pt says that he had bilateral great toe surgery with permanent ingrown toenail removal by door frame assembler machine, Dr. Freitas, 1 month ago (DOS: 11/14/17 ). Pt was referred for hospitalization by Dr. Freitas and PMD: Dr. Gonzalez. Pt reports mild pain graded 3/10 which progressed over last 4 days, along with redness and swelling. Pt has been keeping his toes clean, dry, and wrapped, and has taken oral abx as directed. He complained of pain and mild swelling but does not recall and pus or drainage. Denies f/n/v/c/sob at this time. Review of Systems - Review of Systems All systems: reviewed and no additional remarkable complaints except Past Patient History - Infectious Disease Hx of Infectious Diseases: None - Past Social History Smoking Status: Current Some Days Smoker - CARDIAC Hx Cardiac Disorders: Yes Hx Hypertension: Yes - PULMONARY Hx Respiratory Disorders: Yes Hx Chronic Obstructive Pulmonary Disease (COPD): Yes - NEUROLOGICAL Hx Neurological Disorder: Yes Hx Dizziness: Yes (occassional) Hx Paralysis: No - HEENT Hx HEENT Problems: No Other/Comment: wears glasses - RENAL Hx Chronic Kidney Disease: No - ENDOCRINE/METABOLIC Hx Endocrine Disorders: Yes Hx Diabetes Mellitus Type 2: Yes - HEMATOLOGICAL/ONCOLOGICAL Hx Blood Disorders: No Hx Blood Transfusions: No Hx Blood Transfusion Reaction: No - INTEGUMENTARY Hx Dermatological Problems: Yes Hx Cellulitis: Yes - MUSCULOSKELETAL/RHEUMATOLOGICAL Hx Musculoskeletal Disorders: Yes Hx Arthritis: Yes - GASTROINTESTINAL Hx Gastrointestinal Disorders: No - GENITOURINARY/GYNECOLOGICAL Hx Genitourinary Disorders: No - PSYCHIATRIC Hx Psychophysiologic Disorder: No Hx Substance Use: No - SURGICAL HISTORY Hx Coronary Stent: Yes (X2) - ANESTHESIA Hx Anesthesia: Yes Hx Anesthesia Reactions: No Hx Malignant Hyperthermia: No Meds Allergies/Adverse Reactions: Allergies Allergy/AdvReac Type Severity Reaction Status Date / Time No Known Allergies Allergy Verified 12/21/17 10:03 - Medications Medications: Current Medications Acetaminophen (Tylenol 325mg Tab) 650 mg PO Q6H PRN PRN Reason: Fever >100.4 F Aspirin (Ecotrin) 81 mg PO DAILY SRINIVASAN Atorvastatin Calcium (Lipitor) 10 mg PO DIN SRINIVASAN Insulin Human Regular (Humulin R High) 0 units SC ACHS SRINIVASAN PRN Reason: Protocol Lisinopril (Zestril) 10 mg PO DAILY [facility] Metformin HCl (Glucophage Xr) 500 mg PO BID [facility] Ondansetron HCl (Zofran Inj) 4 mg IVP Q6H PRN PRN Reason: Nausea/Vomiting Oxycodone/Acetaminophen (Percocet 5/325 Mg Tab) 1 tab PO Q6H PRN PRN Reason: Pain, moderate (4-7) Stop: 12/24/17 15:15 Pantoprazole Sodium (Protonix Ec Tab) 40 mg PO 0630 SRINIVASAN Ticagrelor (Brilinta) 90 mg PO BID [facility] Physical Exam - Constitutional Appears: Well, Non-toxic, No Acute Distress - Extremities Exam Additional comments: Lower extremity focused. VASC: DP and PT pulses palpable, graded 2/4. CRF to all 10 digits < 3 seconds. Temperature runs warm to cool proximal to distal. DERM: Bilateral hallux medial and lateral nail plates absent with dry huperkeratotic nail folds, mild tenderness to palpation to the nail folds, with localized non streaking erythema. Absent callor. No active drainage noted, though stable hematogneous dried exudate noted. No open wounds, lesions, or macerations. Skin is normotrophic. NEURO: Protective sensation grossly intact. MUSK: No gross deformities noted. Pedal and lower leg muscle strenght in 4 major muscle groups graded 5/5. - Neurological Exam Neurological exam: Alert, Oriented x3 - Psychiatric Exam Psychiatric exam: Normal Affect, Normal Mood Results - Vital Signs Recent Vital Signs: Last Vital Signs Temp 98.1 F 12/21/17 11:41 Pulse 70 12/21/17 13:13 Resp 18 12/21/17 13:13 BP 154/86 H 12/21/17 13:13 Pulse Ox 100 12/21/17 13:00 - Labs Result Diagrams: 12/21/17 10:48 12/21/17 11:35 Assessment & Plan - Assessment and Plan (Free Text) Assessment: 62 year old male with bilateral great toe cellulits. Plan: Pt seen and evaluated at the bedside. Plan discussed with attending Dr. Sheikh , who endorsed the following plan. Chart, labs and vitals reviewed: afebrile, absent leukocytosis. WBC=7.1. Pt noted hyperkalemic. Pt advised to keep toes clean and dry and to wear hospital socks. Dressed great toes bilaterally with betadine, petroleum gauze, and DSD. b/l foot x-rays results reviewed- negative for hallux OM. ID consult placed for abx and potential IV abx recommendations. Podiatry will continue to follow while inhouse. - Date & Time Date: 12/21/17 Time: 15:00 <Deborah Sheikh - Last Filed: 12/26/17 15:16> Results - Vital Signs Recent Vital Signs: Last Vital Signs Temp 98.0 F 12/25/17 09:36 Pulse 79 12/25/17 09:36 Resp 20 12/25/17 09:36 BP 131/81 12/24/17 14:00 Pulse Ox 99 12/25/17 09:36 - Labs Result Diagrams: 12/25/17 06:45 12/25/17 06:45 Attending/Attestation - Attestation I have personally seen and examined this patient.: Yes I have fully participated in the care of the patient.: Yes I have reviewed all pertinent clinical information: Yes
[2017-12-21] MEDS: Insulin Reg-HIGH-Coverage SC SCH ×2 (18:12→22:47)
[2017-12-21] MEDS: Oxycodone/Acetaminophen 5/325 mg Tab PO PRN (20:16)
--- NOTE | 2017-12-21 21:39 | HP ---
HISTORY OF PRESENT ILLNESS: The patient is 62 years old, known to me from previous admission. The patient was seen by integrity consultant because of increasing pain and swelling in both toes. He was seen by outside integrity consultant, who recommended him to go to emergency room for IV antibiotic. Denies any fever, but did have chills for a few days. Complained of feeling depressed because of his health reasons. Otherwise, no history of nausea or vomiting. Does complain of decreased appetite. PAST MEDICAL HISTORY: Significant for; 1. Coronary artery disease, status post recent angioplasty within last year. 2. Hypertension. 3. Noninsulin-dependent diabetes. 4. Hyperlipidemia. 5. Active smoking. ALLERGIES: HE IS NOT ALLERGIC TO ANY MEDICATION. MEDICATION AT HOME: The patient is clindamycin 300 q. 8 at home. He is on Brilinta. He is on simvastatin 10 mg daily, metformin 500 twice a day, lisinopril 10 mg daily, aspirin 81 daily. SOCIAL HISTORY: He is active smoker. He used to be a heavy smoker for 1 to 2 packs for many many years. PHYSICAL EXAMINATION: GENERAL: He is awake, alert, oriented, worried, anxious. VITAL SIGNS: He is afebrile, pulse 81, respirations 18, blood pressure 154/86. LUNGS: Bilateral good airflow. No rhonchi or crackle. HEART: S1 and S2 audible. ABDOMEN: Soft. Nontender. No rebound. No guarding. NEUROLOGIC: The patient is awake and alert, able to communicate. EXTREMITIES: Bilateral big toes have ulcer and are swollen. LABORATORY DATA: WBC 7.1, hemoglobin 11.2, hematocrit 34.4, platelets 313. PT 11.2, INR 0.97. Chemistry: Sodium 140, potassium 6.7, chloride 109, CO2 of 18, BUN 44, creatinine 2.1, blood sugar of 237. X-ray of the foot revealed no evidence of osteomyelitis. IMPRESSION: 1. Bilateral toes diabetic ulcer. 2. Peripheral vascular disease. 3. [id number] diabetes. 4. Hypertension. 5. Hyperlipidemia. 6. Active smoker. 7. Peripheral vascular disease. 8. Hyperkalemia. PLAN: We will repeat another Kayexalate 4-hour of the first one. Repeat his Chem-7. Start him on IV antibiotic and Podiatry consult by Dr. Sheikh and ID consult by Dr. Dwyer has been requested. Silvano Gonzalez MD
[2017-12-21] MEDS: Linezolid 600 mg in D5W 300 ml 600 MG/300 ML BAG IVPB SCH (22:46)
[2017-12-22] MEDS: Oxycodone/Acetaminophen 5/325 mg Tab PO PRN ×3 (02:21→18:26)
[2017-12-22] MEDS: Pantoprazole 40 mg EC Tab PO SCH (06:47)
[2017-12-22 07:27] LABS: BASO # 0.01 K/mm3 (0.0-2.0); BASO % 0.1 % (0.0-3.0); EOS # 0.1 (0.0-0.7); EOS % 0.8 % (1.5-5.0); GRAN # 4.05 (1.4-6.5); GRAN % 55.1 % (50.0-68.0); HEMOGLOBIN 10.2 g/dL (14.0-18.0); LYMPH # 2.9 (1.2-3.4); MEAN CELL VOLUME 87.3 fl (80.0-105.0); MEAN CORPUSCULAR HEMOGLOBIN 27.6 pg (25.0-35.0); MEAN CORPUSCULAR HGB CONC 31.7 g/dl (31.0-37.0); MEAN PLATELET VOLUME 10.2 fl (7.0-11.0); MONO # 0.4 (0.1-0.6); RBC 3.69 10^6/uL (3.5-6.1); RED CELL DISTRIBUTION WIDTH 16.3 % (11.5-14.5); WHITE BLOOD COUNT 7.4 10^3/ul (4.5-11.0)
[2017-12-22 07:55] LABS: ALB/GLOB RATIO 1.6 (1.1-1.8); ALBUMIN 4.1 g/dL (3.0-4.8); CALCIUM 9.4 mg/dL (8.4-10.5)
--- NOTE | 2017-12-22 08:16 | CARD ---
APPROVED REPORT EKG Measurement Heart [id number] <Conclusion> Normal sinus rhythm Nonspecific T wave abnormality Abnormal ECG
[2017-12-22] MEDS: Insulin Reg-HIGH-Coverage SC SCH ×4 (08:50→22:29)
[2017-12-22] MEDS ORDERED: Sod Polystyrene Sulf 15 gm/60 ml Susp PO ONE (09:52)
[2017-12-22] MEDS: Linezolid 600 mg in D5W 300 ml 600 MG/300 ML BAG IVPB SCH ×2 (11:26→22:20)
--- NOTE | 2017-12-22 15:55 | CP.PCM.CON ---
History of Present Illness - History of Present Illness History of Present Illness: 62 year old male with PMH of HTN, DM, dyslipidemia, significant smoking history , history of acute diverticulitis with associated Bacteroides sphlanchnicus bacteremia came in to [facility] complaining of bilateral big toe pain and swelling. As per patient, he visited his Metal Control Coordinator last month and had ingrown toenails removed. He was apparently given antibiotics when he complained of increasing pain in the area. He denies fever or chills, no pus or bleeding from the area, no animal contacts, no walking barefoot, no soaking of feet in water. He also denies headache or dizziness, no chest pain, no SOB, no cough or colds, no abdominal pain, no diarrhea, no dysuria. Infectious Diseases consult is requested to further evaluate and manage. Review of Systems - Review of Systems All systems: reviewed and no additional remarkable complaints except (as per HPI ) Past Patient History - Infectious Disease Hx of Infectious Diseases: None - Past Social History Smoking Status: Current Some Days Smoker - CARDIAC Hx Cardiac Disorders: Yes Hx Hypertension: Yes - PULMONARY Hx Respiratory Disorders: Yes Hx Chronic Obstructive Pulmonary Disease (COPD): Yes - NEUROLOGICAL Hx Neurological Disorder: Yes Hx Dizziness: Yes (occassional) Hx Paralysis: No - HEENT Hx HEENT Problems: No Other/Comment: wears glasses - RENAL Hx Chronic Kidney Disease: No - ENDOCRINE/METABOLIC Hx Endocrine Disorders: Yes Hx Diabetes Mellitus Type 2: Yes - HEMATOLOGICAL/ONCOLOGICAL Hx Blood Disorders: No Hx Blood Transfusions: No Hx Blood Transfusion Reaction: No - INTEGUMENTARY Hx Dermatological Problems: Yes Hx Cellulitis: Yes - MUSCULOSKELETAL/RHEUMATOLOGICAL Hx Musculoskeletal Disorders: Yes Hx Arthritis: Yes - GASTROINTESTINAL Hx Gastrointestinal Disorders: No - GENITOURINARY/GYNECOLOGICAL Hx Genitourinary Disorders: No - PSYCHIATRIC Hx Psychophysiologic Disorder: No Hx Substance Use: No - SURGICAL HISTORY Hx Coronary Stent: Yes (X2) - ANESTHESIA Hx Anesthesia: Yes Hx Anesthesia Reactions: No Hx Malignant Hyperthermia: No Meds Allergies/Adverse Reactions: Allergies Allergy/AdvReac Type Severity Reaction Status Date / Time No Known Allergies Allergy Verified 12/21/17 10:03 - Medications Medications: Current Medications Acetaminophen (Tylenol 325mg Tab) 650 mg PO Q6H PRN PRN Reason: Fever >100.4 F Aspirin (Ecotrin) 81 mg PO DAILY [facility] Atorvastatin Calcium (Lipitor) 10 mg PO DIN [facility] Linezolid (Zyvox 600mg/300ml D5w) 600 mg in 300 mls @ 200 mls/hr IVPB Q12 [facility] PRN Reason: Protocol Stop: 12/28/17 22:01 Insulin Human Regular (Humulin R High) 0 units SC ACHS [facility] PRN Reason: Protocol Lisinopril (Zestril) 10 mg PO DAILY [facility] Metformin HCl (Glucophage Xr) 500 mg PO BID [facility] Ondansetron HCl (Zofran Inj) 4 mg IVP Q6H PRN PRN Reason: Nausea/Vomiting Oxycodone/Acetaminophen (Percocet 5/325 Mg Tab) 1 tab PO Q6H PRN PRN Reason: Pain, moderate (4-7) Stop: 12/24/17 15:15 Pantoprazole Sodium (Protonix Ec Tab) 40 mg PO 0630 [facility] Ticagrelor (Brilinta) 90 mg PO BID [facility] Physical Exam - Constitutional Appears: Non-toxic, No Acute Distress - Head Exam Head Exam: NORMAL INSPECTION - ENT Exam ENT Exam: Mucous Membranes Moist - Neck Exam Neck exam: Negative for: Meningismus - Respiratory Exam Respiratory Exam: Decreased Breath Sounds - Cardiovascular Exam Cardiovascular Exam: +S1, +S2 - GI/Abdominal Exam GI & Abdominal Exam: Soft. absent: Tenderness - Extremities Exam Additional comments: both big toes with dressings in place Results - Vital Signs Recent Vital Signs: Last Vital Signs Temp 98.3 F 12/21/17 14:00 Pulse 89 12/21/17 14:00 Resp 18 12/21/17 14:00 BP 148/86 12/21/17 14:00 Pulse Ox 98 12/21/17 14:00 - Labs Result Diagrams: 12/22/17 06:45 12/22/17 06:45 Labs: Laboratory Results - last 24 hr 12/21/17 15:30 Potassium 5.0 Assessment & Plan - Assessment and Plan (Free Text) Plan: Assessment bilateral hallux skin and skin structure infection history of acute diverticulitis with associated Bacteroides sphlanchnicus bacteremia HTN DM dyslipidemia significant smoking history Plan started Zyvox; xrays of the feet does not show osteomyelitis will monitor clinical response
[2017-12-22] MEDS: Albuterol-Ipratrop 3 mg / 0.5 (3 ml) UD IH SCH (20:53)
--- NOTE | 2017-12-22 21:13 | PN ---
DATE: SUBJECTIVE: The patient is a 62-year-old, lying in bed, seems to be comfortable, pain in the foot, complained of cough. PHYSICAL EXAMINATION: VITAL SIGNS: He is afebrile. Pulse 69, respirations 20, and blood pressure 141/70. LUNGS: Bilateral soft crackles in the upper lung region. HEART: S1 and S2 audible. ABDOMEN: Soft, nontender. No rebound. No guarding. NEUROLOGIC: He is awake, alert, and oriented. Able to communicate. EXTREMITIES: Bilateral toes are in dressing, done by Podiatry team. LABORATORY DATA: WBC is 7.4, hemoglobin 10.2, hematocrit 32.2, and platelets of 282. Chemistry: Sodium 143, potassium 4.2, chloride 109, CO2 20, BUN 34, creatinine 1.8, and blood sugar of 196. Blood cultures and urine cultures are negative. ASSESSMENT: 1. Bilateral foot ingrown toenails and cellulitis. 2. Qlwae-ii-epzwesj renal insufficiency. 3. Active smoker. 4. Noninsulin-dependent diabetes. 5. Hypertension. 6. Coronary artery disease, status post angioplasty. PLAN: The patient is currently on Brilinta. He is on aspirin 81 mg daily. He is on metformin. He was given a dose of Kayexalate. I will continue him on atorvastatin. Continue him on Rocephin and Protonix. Discontinue lisinopril since his creatinine is creeping up. Start him on nebulizer treatment and start him on Zithromax for his bronchitis. Silvano Gonzalez MD
--- NOTE | 2017-12-22 21:36 | CP.PCM.PN ---
Subjective - Date & Time of Evaluation Date of Evaluation: 12/22/17 Time of Evaluation: 21:33 - Subjective Subjective: draft something for itching Objective - Vital Signs/Intake and Output Vital Signs (last 24 hours): Temp Pulse Resp BP Pulse Ox 98 F 68 20 141/70 100 12/22/17 17:22 12/22/17 18:00 12/22/17 17:22 12/22/17 17:22 12/22/17 17:22 Intake and Output: 12/22/17 12/23/17 18:59 06:59 Intake Total 540 Balance 540 - Medications Medications: Current Medications Acetaminophen (Tylenol 325mg Tab) 650 mg PO Q6H PRN PRN Reason: Fever >100.4 F Albuterol/Ipratropium (Duoneb 3 Mg/0.5 Mg (3 Ml) Ud) 3 ml IH [id number] [facility] Last Admin: 12/22/17 20:53 Dose: 3 ml Alprazolam (Xanax) 0.25 mg PO HS [facility] PRN Reason: Protocol Stop: 12/29/17 22:01 Aspirin (Ecotrin) 81 mg PO DAILY [facility] Last Admin: 12/22/17 11:17 Dose: 81 mg Atorvastatin Calcium (Lipitor) 10 mg PO DIN [facility] Last Admin: 12/22/17 17:25 Dose: 10 mg Linezolid (Zyvox 600mg/300ml D5w) 600 mg in 300 mls @ 200 mls/hr IVPB Q12 [facility] PRN Reason: Protocol Stop: 12/28/17 22:01 Last Admin: 12/22/17 11:26 Dose: 200 mls/hr Insulin Human Regular (Humulin R High) 0 units SC ACHS [facility] PRN Reason: Protocol Last Admin: 12/22/17 17:25 Dose: 2 units Metformin HCl (Glucophage Xr) 500 mg PO BID [facility] Last Admin: 12/22/17 17:25 Dose: 500 mg Nicotine (Nicoderm Cq) 1 patch TD DAILY [facility] Last Admin: 12/22/17 11:17 Dose: 1 patch Ondansetron HCl (Zofran Inj) 4 mg IVP Q6H PRN PRN Reason: Nausea/Vomiting Last Admin: 12/22/17 08:51 Dose: 4 mg Oxycodone/Acetaminophen (Percocet 5/325 Mg Tab) 1 tab PO Q6H PRN PRN Reason: Pain, moderate (4-7) Stop: 12/24/17 15:15 Last Admin: 12/22/17 18:26 Dose: 1 tab Pantoprazole Sodium (Protonix Ec Tab) 40 mg PO 0630 [facility] Last Admin: 12/22/17 06:47 Dose: 40 mg Silver Sulfadiazine (Silvadene 1% 25 Gm) 0 gm TP DAILY [facility] Ticagrelor (Brilinta) 90 mg PO BID [facility] Last Admin: 12/22/17 17:25 Dose: 90 mg - Labs Labs: 12/22/17 06:45 12/22/17 06:45 PT 11.2 SECONDS (9.4-12.5) 12/21/17 10:48 INR 0.97 (0.93-1.08) 12/21/17 10:48 APTT 29.1 Seconds (25.1-36.5) 12/21/17 10:48 Assessment and Plan - Assessment and Plan (Free Text) Assessment: Itching. Plan: Benadryl 25 mg PO x 1. Continue management as per PMD.
--- NOTE | 2017-12-22 21:41 | US ---
PROCEDURE: Lower extremity MANUEL exam HISTORY: Peripheral vascular disease with pain and claudication. Diabetes. Smoker. PHYSICIAN(S): Kenneth Mccullough MD. FINDINGS: The right resting MANUEL is normal, 1.03. The left resting MANUEL is moderately abnormal, 0.64 The brachial systolic pressures are symmetric. The high thigh PVR waveforms are normal and symmetric. However, there is a 61 mm gradient between the arm and left high thigh pressure. This is consistent with left iliac occlusive disease The PVR waveforms and pressures are normal on the right. The PVR waveforms are moderately diminished on the left. IMPRESSION: 1. Moderately abnormal left MANUEL at rest. 2. Left iliac occlusive disease. 3. If clinically indicated, further evaluation with MRA with gadolinium runoff, CTA runoff, or conventional arteriogram can be considered.
--- NOTE | 2017-12-22 22:09 | PN ---
DATE: 12/22/2017 SUBJECTIVE: This is a 62-year-old diabetic male seen for bilateral ingrown toenail removal, which subsequently became infected. PAST MEDICAL HISTORY: Positive for hypertension, diabetes, acute diverticulitis, had a bacteremia secondary to the diverticulitis and he states that his sales utility representative took off his ingrown toenails approximately a month ago, but he started getting an infection and he went to his doctor, got some antibiotics by mouth, but they did not get better, so he went to his primary care doctor, who admitted him. REVIEW OF SYSTEMS: They were reviewed with no additional complaints except above in the HPI. PHYSICAL EXAMINATION: GENERAL: Patient seen at bedside. He denies any fever or chills. VITAL SIGNS: Temperature of 98. His blood pressure is 141/70, respirations are 20 and the oxygen saturation is 100%. MEDICATIONS: Noted on the DEC. ALLERGIES: HE HAS NO KNOWN DRUG ALLERGIES. LABORATORY DATA: Show white blood cell count of 7.4 with H and H of 10.2 and 32.2 and the platelets are 282. Chemistry shows a BUN and creatinine of 34 and 1.8 and the glucose was 172. The patient's microbiology, urine with no growth, blood cultures no growth after 24 hours. Patient has had bilateral foot x-rays, which were unremarkable. He did have extremity Doppler ultrasound, it has not been read; however, I did review them and he has flattening of the waveforms in his both feet. His MANUEL on the right was 1 and it was quite diminished on the left. We will await the full report before recommendations are made. The patient's toes are clinically improving. The cellulitis has resolved. Both nail borders on both big toes show evidence of having had the nail removed and avulsed whether it was a permanent removal or a straight back procedure, at this time it is not clear. There is no pus. There is no fluctuance and the rest of the nail plate except for that was removed is intact. ASSESSMENT: Bilateral partial nail plate removal with cellulitis in a diabetic with kidney disease and peripheral vascular disease. PLAN OF TREATMENT: At this time, we will cleanse it with peroxide, so we can soften and curettage the nail beds, little Silvadene and a dry sterile dressing was ordered. Patient has open shoes for ambulation and again we will await the Doppler ultrasound results before making full recommendations. Deborah Sheikh DPM
[2017-12-23] MEDS: Albuterol-Ipratrop 3 mg / 0.5 (3 ml) UD IH SCH ×4 (02:28→20:16)
[2017-12-23] MEDS: Pantoprazole 40 mg EC Tab PO SCH (05:36)
[2017-12-23] MEDS: Oxycodone/Acetaminophen 5/325 mg Tab PO PRN ×3 (06:31→22:09)
[2017-12-23] MEDS: Insulin Reg-HIGH-Coverage SC SCH ×4 (08:27→22:02)
[2017-12-23] MEDS: Linezolid 600 mg in D5W 300 ml 600 MG/300 ML BAG IVPB SCH ×2 (09:09→22:02)
[2017-12-23] MEDS: Silver Sulfadiazine 1% Cream (25 gm) TP SCH (13:05)
[2017-12-23] MEDS ORDERED: DiphenhydrAMINE 12.5 mg/5 ml LIQ UD (5 ml) PO PRN (13:10)
--- NOTE | 2017-12-23 13:15 | CP.PCM.PN ---
<Vineet Negro - Last Filed: 12/23/17 13:09> Subjective - Date & Time of Evaluation Date of Evaluation: 12/23/17 Time of Evaluation: 13:09 - Subjective Subjective: Podiatry Progress Note- Dr. Javier 62 y.o male seen and evaluated with attending Dr. Javier for cellulitic bilateral hallux. Patient is seen resting comfortably in bed, in AA0x3, and NAD. Patient reports that is no pain to the hallux with no pressure but with pressure, there is pain. Patient denies acute overnight events. Denies n/v/sob/ cp/chills/f. Objective - Vital Signs/Intake and Output Vital Signs (last 24 hours): Temp Pulse Resp BP Pulse Ox 96.9 F L 79 17 151/93 H 98 12/23/17 11:56 12/23/17 13:05 12/23/17 11:56 12/23/17 11:56 12/23/17 11:56 Intake and Output: 12/23/17 12/23/17 06:59 18:59 Intake Total 180 Balance 180 - Medications Medications: Current Medications Acetaminophen (Tylenol 325mg Tab) 650 mg PO Q6H PRN PRN Reason: Fever >100.4 F Albuterol/Ipratropium (Duoneb 3 Mg/0.5 Mg (3 Ml) Ud) 3 ml IH [id number] [facility] Last Admin: 12/23/17 13:04 Dose: 3 ml Alprazolam (Xanax) 0.25 mg PO HS [facility] PRN Reason: Protocol Stop: 12/29/17 22:01 Last Admin: 12/22/17 22:18 Dose: 0.25 mg Aspirin (Ecotrin) 81 mg PO DAILY [facility] Last Admin: 12/23/17 09:09 Dose: 81 mg Atorvastatin Calcium (Lipitor) 10 mg PO DIN [facility] Last Admin: 12/22/17 17:25 Dose: 10 mg Linezolid (Zyvox 600mg/300ml D5w) 600 mg in 300 mls @ 200 mls/hr IVPB Q12 [facility] PRN Reason: Protocol Stop: 12/28/17 22:01 Last Admin: 12/23/17 09:09 Dose: 200 mls/hr Insulin Human Regular (Humulin R High) 0 units SC ACHS [facility] PRN Reason: Protocol Last Admin: 12/23/17 12:17 Dose: 7 units Metformin HCl (Glucophage Xr) 500 mg PO BID [facility] Last Admin: 12/23/17 09:09 Dose: 500 mg Nicotine (Nicoderm Cq) 1 patch TD DAILY [facility] Last Admin: 12/23/17 09:08 Dose: 1 patch Ondansetron HCl (Zofran Inj) 4 mg IVP Q6H PRN PRN Reason: Nausea/Vomiting Last Admin: 12/22/17 08:51 Dose: 4 mg Oxycodone/Acetaminophen (Percocet 5/325 Mg Tab) 1 tab PO Q6H PRN PRN Reason: Pain, moderate (4-7) Stop: 12/24/17 15:15 Last Admin: 12/23/17 06:31 Dose: 1 tab Pantoprazole Sodium (Protonix Ec Tab) 40 mg PO 0630 [facility] Last Admin: 12/23/17 05:36 Dose: 40 mg Silver Sulfadiazine (Silvadene 1% 25 Gm) 0 gm TP DAILY [facility] Last Admin: 12/23/17 13:05 Dose: 25 gm Ticagrelor (Brilinta) 90 mg PO BID [facility] Last Admin: 12/23/17 09:09 Dose: 90 mg - Labs Labs: 12/22/17 06:45 12/22/17 06:45 PT 11.2 SECONDS (9.4-12.5) 12/21/17 10:48 INR 0.97 (0.93-1.08) 12/21/17 10:48 APTT 29.1 Seconds (25.1-36.5) 12/21/17 10:48 - Constitutional Appears: Well, Non-toxic, No Acute Distress - Extremities Exam Extremities Exam: absent: Calf Tenderness Additional comments: Lower extremity focused. VASC: DP and PT pulses palpable, graded 1/4. CRF to all 10 digits < 3 seconds. Temperature runs cool to cool proximal to distal. DERM: Bilateral hallux medial and lateral nail plates absent with dry hyperkeratotic nail folds, mild tenderness to palpation to the nail folds, with localized non streaking erythema. Rest of th nail plate is firmly attached to the nail bed. Absent callor. No active drainage noted, though stable hematogneous dried exudate noted. No open wounds, lesions, or macerations. Skin is normotrophic. NEURO: Protective sensation grossly intact. MUSK: No gross deformities noted. Pedal and lower leg muscle strenght in 4 major muscle groups graded 5/5. - Neurological Exam Neurological Exam: Alert, Awake, Oriented x3 - Psychiatric Exam Psychiatric exam: Normal Affect, Normal Mood Assessment and Plan - Assessment and Plan (Free Text) Assessment: 62 year old male with bilateral great toe cellulits. Plan: Pt seen and evaluated at the bedside. Chart, labs and vitals reviewed: afebrile, absent leukocytosis. Discussed the plan with Dr. Javier Pt advised to keep toes clean and dry and to wear hospital socks. Dressed great toes cleansed with saline solution and dressed with silvadene Will order hydrogen peroxide to use for cleansing Will continue hydrogen peroxide and silvadene to soften surrounding soft tissue to currette nail bed b/l foot x-rays results reviewed- negative for hallux OM. c/w Zyvox per ID Podiatry will continue to follow while inhouse. <Mazin Javier - Last Filed: 12/23/17 16:19> Objective - Vital Signs/Intake and Output Vital Signs (last 24 hours): Temp Pulse Resp BP Pulse Ox 96.9 F L 79 17 151/93 H 98 12/23/17 11:56 12/23/17 13:05 12/23/17 11:56 12/23/17 11:56 12/23/17 11:56 Intake and Output: 12/23/17 12/23/17 06:59 18:59 Intake Total 180 Balance 180 - Medications Medications: Current Medications Acetaminophen (Tylenol 325mg Tab) 650 mg PO Q6H PRN PRN Reason: Fever >100.4 F Albuterol/Ipratropium (Duoneb 3 Mg/0.5 Mg (3 Ml) Ud) 3 ml IH [id number] [facility] Last Admin: 12/23/17 13:04 Dose: 3 ml Alprazolam (Xanax) 0.25 mg PO HS [facility] PRN Reason: Protocol Stop: 12/29/17 22:01 Last Admin: 12/22/17 22:18 Dose: 0.25 mg Aspirin (Ecotrin) 81 mg PO DAILY [facility] Last Admin: 12/23/17 09:09 Dose: 81 mg Atorvastatin Calcium (Lipitor) 10 mg PO DIN [facility] Last Admin: 12/22/17 17:25 Dose: 10 mg Diphenhydramine HCl (Benadryl) 10 mg PO HS PRN PRN Reason: Allergy symptoms Linezolid (Zyvox 600mg/300ml D5w) 600 mg in 300 mls @ 200 mls/hr IVPB Q12 [facility] PRN Reason: Protocol Stop: 12/28/17 22:01 Last Admin: 12/23/17 09:09 Dose: 200 mls/hr Insulin Human Regular (Humulin R High) 0 units SC ACHS [facility] PRN Reason: Protocol Last Admin: 12/23/17 12:17 Dose: 7 units Metformin HCl (Glucophage Xr) 500 mg PO BID [facility] Last Admin: 12/23/17 09:09 Dose: 500 mg Nicotine (Nicoderm Cq) 1 patch TD DAILY [facility] Last Admin: 12/23/17 09:08 Dose: 1 patch Ondansetron HCl (Zofran Inj) 4 mg IVP Q6H PRN PRN Reason: Nausea/Vomiting Last Admin: 12/22/17 08:51 Dose: 4 mg Oxycodone/Acetaminophen (Percocet 5/325 Mg Tab) 1 tab PO Q6H PRN PRN Reason: Pain, moderate (4-7) Stop: 12/24/17 15:15 Last Admin: 12/23/17 15:07 Dose: 1 tab Pantoprazole Sodium (Protonix Ec Tab) 40 mg PO 0630 [facility] Last Admin: 12/23/17 05:36 Dose: 40 mg Silver Sulfadiazine (Silvadene 1% 25 Gm) 0 gm TP DAILY [facility] Last Admin: 12/23/17 13:05 Dose: 25 gm Ticagrelor (Brilinta) 90 mg PO BID [facility] Last Admin: 12/23/17 09:09 Dose: 90 mg - Labs Labs: 12/22/17 06:45 12/22/17 06:45 PT 11.2 SECONDS (9.4-12.5) 12/21/17 10:48 INR 0.97 (0.93-1.08) 12/21/17 10:48 APTT 29.1 Seconds (25.1-36.5) 12/21/17 10:48 Attending/Attestation - Attestation I have personally seen and examined this patient.: Yes I have fully participated in the care of the patient.: Yes I have reviewed all pertinent clinical information, including history, physical exam and plan: Yes
--- NOTE | 2017-12-23 14:34 | PN ---
DATE: SUBJECTIVE: The patient is a 62 years old, seen and examined. He states he feels a little better. OBJECTIVE: VITAL SIGNS: He is afebrile. Pulse 55, respirations 20, and blood pressure 117/58. LUNGS: Bilateral good air flow. No rhonchi or crackle. HEART: S1, S2 audible. ABDOMEN: Soft, nontender, no rebound, no guarding. NEUROLOGIC: He is awake, alert, oriented, and communicative. LABORATORY DATA: WBC is 7.4, hemoglobin 10.2, hematocrit 32.2, platelet of 282. Chemistry: Sodium 143, potassium 5.2, chloride 109, CO2 of 20. BUN 34, creatinine 1.8. Blood sugar of 149. ASSESSMENT: 1. Bilateral big toe cellulitis. 2. [id number] diabetes. 3. Hypertension. 4. Hyperlipidemia. 5. Coronary artery disease, status post angioplasty. 6. Peripheral vascular disease. 7. Moderately abnormal left ankle-brachial index. 8. occlusive disease. PLAN: I will request for Dr. Kenneth Mccullough's evaluation for possible angioplasty and request for Dr. Pang for nephrology consult. Encourage ambulation, will follow the patient. Silvano Gonzalez MD
[2017-12-23] MEDS: Sodium Chloride 0.45% 1,000 ML IV SCH (16:46)
[2017-12-23 21:52] LABS: PH,URINE 5.5 (4.7-8.0); URINE BILIRUBIN NEGATIVE (NEGATIVE); URINE BLOOD NEGATIVE (NEGATIVE); URINE GLUCOSE (UA) NEGATIVE (NEGATIVE); URINE LEUKOCYTE ESTERASE NEGATIVE Leu/uL (NEGATIVE); URINE PROTEIN NEGATIVE mg/dL (<30 mg/dL); URINE UROBILINOGEN 0.2 E.U./dL (<1 E.U./dL)
[2017-12-23 21:53] LABS: URINE APPEARANCE CLEAR (CLEAR); URINE COLOR YELLOW (YELLOW)
[2017-12-23 22:23] LABS: CREATININE,RANDOM URINE 97 mg/dL
--- NOTE | 2017-12-23 23:48 | PN ---
DATE: 12/23/2017 SUBJECTIVE: The patient is in bed, in no acute distress. PHYSICAL EXAMINATION: VITAL SIGNS: On exam, temperature is 96.9, blood pressure is 150/90, respiratory rate of 20, heart rate of 55. HEENT: Unremarkable. NECK: Supple. LUNGS: Have decreased breath sounds. HEART: Normal S1, S2. ABDOMEN: Soft. LABORATORY DATA: Laboratory examination reveals a white count of 7.4, hemoglobin of 10, platelets of 282. Chemistries are noted and BUN of 34, creatinine of 1.8. Microbiology reveals the blood cultures are no growth. Urine cultures are no growth. Review of orders reveals the patient to be on Zyvox. ASSESSMENT AND PLAN: A 62-year-old male who was seen early this morning in room 373, bed 1, transferred to the fifth floor with bilateral hallux skin and skin structure infection in a patient with hypertension, diabetes, dyslipidemia, significant smoking history and a history of acute diverticulitis. Currently, on Zyvox and tolerating antibiotics. We will discuss with Podiatry and we will make further recommendations. Ronald Dwyer MD
[2017-12-24] MEDS: Albuterol-Ipratrop 3 mg / 0.5 (3 ml) UD IH SCH ×4 (01:36→19:53)
--- NOTE | 2017-12-24 02:30 | CON ---
DATE: 12/23/2017 The patient admitted for Dr. Gonzalez. REFERRING PHYSICIAN: Silvano Gonzalez MD. REASON FOR CONSULTATION: Evaluation of a patient unknown to me who presents with an elevated BUN and creatinine and hyperkalemia in the setting of infection in his bilateral big toes in the setting of diabetes. HISTORY OF PRESENT ILLNESS: The patient is a 62-year-old black male with a history of NIDDM; history of hypertension; history of ASHD, status post PTCA; hyperlipidemia; history of peripheral vascular disease; history of mild anemia; history of cigarette smoking, 40+ year history of one half to one pack per day who states that he had a procedure for ingrown toenails bilaterally of his big toes. Apparently, he developed mild infection and the patient is currently admitted to the hospital for IV antibiotic therapy. The patient is noted to have peripheral vascular disease, left lower extremity with an abnormal MANUEL. The patient on admission came in with a BUN of 44. His baseline BUN is less than 20. Baseline creatinine is 1.3, his creatinine was 2.1 on admission. Of note, the patient was significantly hyperkalemic on admission. K was 6.7, repeated at 6.7, treated and came down to 5.0, last potassium was 5.2. We are asked to evaluate the patient for his elevated BUN and creatinine, hyperkalemia, and anion gap metabolic acidosis with a CO2 level of 18, now 20. The patient is on IV antibiotic therapy for his bilateral toe infection. PAST MEDICAL HISTORY: Significant for ASHD status post PTCA, history of hypertension, NIDDM, hyperlipidemia, peripheral vascular disease, anemia, history of cigarette smoking. No past history of chronic kidney disease according to the patient, however, his baseline creatinine is in the 1.2 to 1.3 range, perhaps consistent with chronic kidney disease stage 2. MEDICATIONS: At home include that of Brilinta, simvastatin, Dulera, metformin, lisinopril, Cleocin, Ecotrin, Tylenol No. 3. Current medications in hospital include that of Benadryl, Brilinta, DuoNeb, Ecotrin, Glucophage, sliding scale insulin, Lipitor, NicoDerm CQ, Percocet, Protonix, Silvadene, Tylenol, Xanax, Zofran, and IV Zyvox. ALLERGIES: THE PATIENT HAS NO KNOWN ALLERGIES TO MEDICATIONS. SOCIAL HISTORY: History of cigarette smoking of 40+ years duration, one half to one pack per day. No history of alcohol use. The patient is retired. FAMILY HISTORY: Positive for diabetes. REVIEW OF SYSTEMS: GENERAL: The patient states that his appetite and weight have been stable. ENT: Denies any hearing or visual problems. No history of diabetic retinopathy. PULMONARY: No history of COPD, bronchitis, emphysema despite his use of cigarette smoking. CARDIAC: ASHD, status post PTCA as noted above. GASTROINTESTINAL: No nausea, vomiting, diarrhea, constipation, or abdominal pain. GENITOURINARY: Perhaps history of chronic kidney disease stage 2 with a baseline creatinine in the 1.2-1.3 range. No history of UTIs. No history of kidney stones. ENDOCRINE: History of NIDDM of years duration. MUSCULOSKELETAL: No complaints. NEUROLOGIC: No history of CVA, TIA, seizures, or syncope. HEMATOLOGIC AND ONCOLOGIC: History of mild anemia. PSYCHIATRIC: History is negative. PHYSICAL EXAMINATION: GENERAL: The patient is currently seen on 5R. He appears to be in no acute distress, lying comfortable supine in bed. VITAL SIGNS: Blood pressure ranging from 117-151 systolic, diastolic ranging from 58-93. Temperature 96.9, pulse of 79 and regular. Respiratory rate is 17, pulse ox is 98%. HEENT: Shows him to be normocephalic, atraumatic. Conjunctivae are pink. Sclerae are nonicteric. Pupils are equal and reactive to light and accommodation. Extraocular muscles are intact. Posterior pharynx is normal. NECK: Supple. No neck vein distention. No thyromegaly. No lymphadenopathy. CHEST: Clear to auscultation and percussion. No rales. No rhonchi or wheezing. CARDIOVASCULAR: Shows a regular rate and rhythm without audible murmurs, rubs, or gallops. ABDOMEN: Soft. Bowel sounds normal. No rebound, guarding, or masses. BACK: No CVAT. No spinal tenderness. EXTREMITIES: Show dressings over his big toe bilaterally. No evidence of cellulitis. Diminished pulses in his left lower extremity with better pulses in the right lower extremity. No cyanosis or clubbing. NEUROLOGIC: Shows him to be alert, oriented x3 with no gross focal motor or sensory deficits. LABORATORY DATA AND IMAGING: Foot x-rays on admission showed no osteomyelitis. Arterial Doppler of his lower extremities showed a normal right MANUEL with an abnormal left MANUEL with left iliac occlusive disease. Abdominal and pelvic CT scan done in 2017 showed normal kidneys. Admitting EKG showed normal sinus rhythm, nonspecific T-wave abnormalities. Admitting chest x-ray showed no acute pulmonary disease. CBC: White blood cell count 7.4, hemoglobin of 10.2, platelet count is 282,000. Coags are normal. Chemistry showed a sodium of 143, potassium of 5.2, chloride of 109 with a CO2 of 20. BUN of 34 with a creatinine of 1.8. Glucose is 172. Anion gap was 19. Calcium was 9.4. Albumin was 4.1. AST of 55 with an ALT of 72. Urines are pending. In the past, the patient had trace to 1+ proteinuria. Microbiology: Urine cultures are negative. Blood cultures are negative at 48 hours. ASSESSMENT: 1. Acute renal failure superimposed on chronic kidney disease stage 2 with a baseline BUN of less than 20 and a baseline creatinine in the 1.2-1.3 range. The patient likely has mild proteinuria. This is in the setting of non-insulin dependent diabetes mellitus and hypertension with peripheral vascular disease. I would cautiously place the patient on IV fluid hydration to allow his BUN and creatinine to fall back to normal before there is any consideration for an angiogram or dye study to evaluate circulation of his lower extremity. 2. Infection of his big toes bilaterally, status post removal of an ingrown toenail. The patient is currently on intravenous Zyvox therapy. Cultures are pending. The patient had been seen by Infectious Disease. 3. History of hypertension. Agree with holding CATHERINE inhibitor at this time as his BUN and creatinine are elevated. 4. History of non-insulin dependent diabetes mellitus. I will hold metformin at this time in light of the fact that he is mildly acidotic and his creatinine is above an acceptable range to use this medication. The patient will remain on sliding scale insulin. 5. Status post severe hyperkalemia. The patient will remain off an CATHERINE inhibitor with improvement in his BUN and creatinine and a low potassium diet, this should improve. 6. History of mild anemia. We will check his iron, TIBC, ferritin, B12, and folate levels. In all likelihood, the patient has anemia secondary to chronic medical disease and perhaps kidney disease. 7. Peripheral vascular disease. Abnormal circulation in his left lower extremity as evidenced by his arterial Doppler study. The patient will likely be a candidate for an MRA or CT angio to further evaluate possible iliac occlusive disease. I discussed with Dr. Kenneth Mccullough. I would like to wait until his creatinine falls to baseline level 1.2-1.3. The patient remains well-hydrated. 8. Hyperlipidemia. The patient will continue statin therapy. 9. History of cigarette smoking. The patient commits to discontinue cigarette smoking. He remains on a NicoDerm patch presently. 10. History of arteriosclerotic heart disease, status post percutaneous transluminal coronary angioplasty. The patient will continue present cardiac medications. PLAN: 1. Obtain a urinalysis, urine sodium, urine creatinine. 2. Start the patient on IV fluids in light of the fact that his BUN and creatinine are above baseline levels and the patient is being evaluated for a dye study for evaluation of peripheral vascular disease of his left lower extremity. 3. I would hold metformin right now until his BUN and creatinine fall back to baseline as the patient remains borderline acidotic. 4. The patient should be on a low potassium diet. This will be added to the diet order. 5. Agree with holding CATHERINE inhibitor. 6. In light of his anemia, I will check his iron, TIBC, ferritin, B12, and folate levels. 7. Continue to monitor accurate I's and O's and daily labs. 8. Once his BUN and creatinine fall to baseline levels, BUN less than 20 and creatinine in the 1.2-1.3 range, the patient would be cleared from a renal standpoint for his angio study of his lower extremity. Thank you for letting me partake and share in the care of your patient. Marcel Kaufman MD
--- NOTE | 2017-12-24 05:03 | CON ---
DATE: 12/23/2017 TIME: 6:15 p.m. CHIEF COMPLAINT AND HISTORY OF PRESENT ILLNESS: Mr. Wong is a 62-year-old gentleman who was admitted with persistent cellulitis and pain of his great toes post bilateral podiatric procedures in early October. At that time, both great toe nails were addressed by a specifications writer in [place]. He has been having pain and discoloration since that time. He was admitted for pain and IV antibiotics. His MANUEL/PVR exam demonstrates left iliac and/or common femoral artery disease. Left PVR waveforms are significantly diminished compared to the right. PHYSICAL EXAMINATION: His femoral pulses are normal. He has a palpable right popliteal pulse. His left popliteal pulse is absent. His pedal pulses are absent. Mr. Wong's creatinine and potassium were elevated on admission. It has improved slightly with hydration. He has a history of diabetes, hypertension, and actively smokes. He has coronary artery disease status post stent placement. RECOMMENDATIONS: An MRA runoff was ordered initially. Focal disease can be addressed, if discovered on the MRA runoff. Ideally, Mr. Wong would improve without intervention. Unfortunately, his MANUEL/PVR exam suggest significant disease on the left. This was discussed with Dr. Gonzalez. Kenneth Mccullough MD [facility]
[2017-12-24] MEDS: Pantoprazole 40 mg EC Tab PO SCH (06:11)
[2017-12-24 07:16] LABS: HEMOGLOBIN 9.7 g/dL (14.0-18.0); MEAN CELL VOLUME 87.1 fl (80.0-105.0); MEAN CORPUSCULAR HEMOGLOBIN 28.4 pg (25.0-35.0); MEAN CORPUSCULAR HGB CONC 32.6 g/dl (31.0-37.0); MEAN PLATELET VOLUME 9.7 fl (7.0-11.0); RBC 3.42 10^6/uL (3.5-6.1); WHITE BLOOD COUNT 7.1 10^3/ul (4.5-11.0)
[2017-12-24 07:34] LABS: ALB/GLOB RATIO 1.4 (1.1-1.8); ALBUMIN 3.7 g/dL (3.0-4.8); CALCIUM 9.4 mg/dL (8.4-10.5)
[2017-12-24 07:40] LABS: IRON 52 ug/dL (45-180)
[2017-12-24 07:49] LABS: % IRON SATURATION 18 % (20-55); TOTAL IRON BINDING CAPACITY 292 ug/dL (261-462)
[2017-12-24] MEDS: Sodium Chloride 0.45% 1,000 ML IV SCH ×2 (09:17→10:39)
[2017-12-24] MEDS: Insulin Reg-HIGH-Coverage SC SCH ×3 (09:17→20:23)
[2017-12-24] MEDS: Oxycodone/Acetaminophen 5/325 mg Tab PO PRN ×2 (09:22→18:03)
[2017-12-24] MEDS: Linezolid 600 mg in D5W 300 ml 600 MG/300 ML BAG IVPB SCH ×2 (10:38→21:28)
[2017-12-24] MEDS: Silver Sulfadiazine 1% Cream (25 gm) TP SCH (10:38)
--- NOTE | 2017-12-24 11:57 | CP.PCM.PN ---
Subjective - Date & Time of Evaluation Date of Evaluation: 12/24/17 Time of Evaluation: 11:00 - Subjective Subjective: Podiatry Progress Note- Dr. Sheikh 62 y.o male seen and evaluated for bilateral hallux cellulitis. Patient is seen resting comfortably in bed, in AA0x3, and NAD. Patient reports pain with palpation. Patient denies acute overnight events. Denies n/v/sob/cp/chills/f. Objective - Vital Signs/Intake and Output Vital Signs (last 24 hours): Temp Pulse Resp BP Pulse Ox 97.6 F 70 18 142/87 100 12/24/17 08:05 12/24/17 08:05 12/24/17 08:05 12/24/17 08:05 12/24/17 08:05 Intake and Output: 12/24/17 12/24/17 06:59 18:59 Intake Total 720 Output Total 400 Balance 320 - Medications Medications: Current Medications Acetaminophen (Tylenol 325mg Tab) 650 mg PO Q6H PRN PRN Reason: Fever >100.4 F Albuterol/Ipratropium (Duoneb 3 Mg/0.5 Mg (3 Ml) Ud) 3 ml IH [id number] [facility] Last Admin: 12/24/17 07:48 Dose: 3 ml Alprazolam (Xanax) 0.25 mg PO HS [facility] PRN Reason: Protocol Stop: 12/29/17 22:01 Last Admin: 12/23/17 23:59 Dose: 0.25 mg Aspirin (Ecotrin) 81 mg PO DAILY [facility] Last Admin: 12/24/17 09:17 Dose: 81 mg Atorvastatin Calcium (Lipitor) 10 mg PO DIN [facility] Last Admin: 12/23/17 16:50 Dose: 10 mg Diphenhydramine HCl (Benadryl) 10 mg PO HS PRN PRN Reason: Allergy symptoms Glipizide (Glucotrol) 5 mg PO ACBD [facility] Linezolid (Zyvox 600mg/300ml D5w) 600 mg in 300 mls @ 200 mls/hr IVPB Q12 [facility] PRN Reason: Protocol Stop: 12/28/17 22:01 Last Admin: 12/24/17 10:38 Dose: 200 mls/hr Sodium Chloride (Sodium Chloride 0.45%) 1,000 mls @ 60 mls/hr IV .[id number] [facility] Last Admin: 12/24/17 10:39 Dose: 60 mls/hr Insulin Human Regular (Humulin R High) 0 units SC ACHS [facility] PRN Reason: Protocol Last Admin: 12/24/17 09:17 Dose: Not Given Nicotine (Nicoderm Cq) 1 patch TD DAILY [facility] Last Admin: 12/24/17 09:17 Dose: 1 patch Ondansetron HCl (Zofran Inj) 4 mg IVP Q6H PRN PRN Reason: Nausea/Vomiting Last Admin: 12/22/17 08:51 Dose: 4 mg Oxycodone/Acetaminophen (Percocet 5/325 Mg Tab) 1 tab PO Q6H PRN PRN Reason: Pain, moderate (4-7) Stop: 12/24/17 15:15 Last Admin: 12/24/17 09:22 Dose: 1 tab Pantoprazole Sodium (Protonix Ec Tab) 40 mg PO 0630 [facility] Last Admin: 12/24/17 06:11 Dose: 40 mg Silver Sulfadiazine (Silvadene 1% 25 Gm) 0 gm TP DAILY [facility] Last Admin: 12/24/17 10:38 Dose: 1 gm Ticagrelor (Brilinta) 90 mg PO BID [facility] Last Admin: 12/24/17 09:17 Dose: 90 mg - Labs Labs: 12/24/17 06:20 12/24/17 06:20 PT 11.2 SECONDS (9.4-12.5) 12/21/17 10:48 INR 0.97 (0.93-1.08) 12/21/17 10:48 APTT 29.1 Seconds (25.1-36.5) 12/21/17 10:48 - Constitutional Appears: Well, Non-toxic, No Acute Distress - Extremities Exam Extremities Exam: absent: Calf Tenderness Additional comments: Lower extremity focused. VASC: DP and PT pulses palpable, graded 1/4. CRF to all 10 digits < 3 seconds. Temperature runs cool to cool proximal to distal. DERM: Bilateral hallux medial and lateral nail plates absent with soften hyperkeratotic nail folds, mild tenderness to palpation to the nail folds, with localized non streaking erythema. Rest of th nail plate is firmly attached to the nail bed. Absent callor. No active drainage noted, though stable hematogneous dried exudate noted. No open wounds, lesions, or macerations. Skin is normotrophic. Soft tissue surrounding nail plate is softening NEURO: Protective sensation grossly intact. MUSK: No gross deformities noted. Pedal and lower leg muscle strenght in 4 major muscle groups graded 5/5. - Neurological Exam Neurological Exam: Alert, Awake, Oriented x3 - Psychiatric Exam Psychiatric exam: Normal Affect, Normal Mood Assessment and Plan - Assessment and Plan (Free Text) Assessment: 62 year old male with bilateral great toe cellulits. Plan: Pt seen and evaluated at the bedside. Chart, labs and vitals reviewed: afebrile, absent leukocytosis. Discussed the plan with Dr. Sheikh Pt advised to keep toes clean and dry and to wear hospital socks. Dressed great toes cleansed with saline solution and dressed with silvadene Ordered hydrogen peroxide to use for cleansing Will continue hydrogen peroxide and silvadene to soften surrounding soft tissue to currette nail bed b/l foot x-rays results reviewed- negative for hallux OM. c/w Zyvox per ID
[2017-12-24 12:07] LABS: FERRITIN 30.7 ng/mL
[2017-12-24 12:37] LABS: FOLATE 4.5 ng/mL
--- NOTE | 2017-12-24 13:02 | PN ---
DATE: 12/24/2017 SUBJECTIVE: The patient is seen lying in bed. He is awake. He is alert. He is comfortable. He denies any pain. He denies any shortness of breath. PHYSICAL EXAMINATION: GENERAL: Thinly built elderly male, lying in bed. VITAL SIGNS: Blood pressure 142/87, heart rate 70, respiratory rate 18, temperature 97.6. HEENT: Normocephalic, atraumatic, positive pallor. NECK: Supple, no JVD. LUNGS: Bilateral equal air entry, no rales. CARDIAC: S1 and S2, regular rate and rhythm, no murmur, no rub. ABDOMEN: Soft, nondistended, nontender. Bowel sounds present. EXTREMITIES: Dressing of both great toes. INTAKE AND OUTPUT: 720/400. LABORATORY DATA: WBC 7.1, hemoglobin 9.7, hematocrit 30, platelets 252. Sodium 141, potassium 4.6, chloride 107, CO2 of 23, BUN 26, creatinine 1.7, glucose 136, calcium 9.4, phosphorus 4.7, magnesium 2.3, iron 52, saturation 18, AST 27, ALT 43, albumin 3.7. Urinalysis: Yellow, clear, pH 5.5, specific gravity 1.015, protein negative, blood negative, ketones negative, urine sodium 55, urine creatinine 97. CURRENT MEDICATIONS: Benadryl, Brilinta, DuoNeb, Ecotrin, Glucotrol, Humulin insulin, Lipitor, Percocet, Protonix, Silvadene, Xanax, Zofran, Zyvox. Metformin put on hold. ASSESSMENT AND PLAN: 1. Acute kidney injury superimposed on chronic kidney disease stage 3? Baseline creatinine appears to be 1.3. 2. Infected/cellulitic bilateral hallux. 3. Fwo-axxkyjw-hiorogmee diabetes mellitus. 4. Hypertension. 5. History of coronary artery disease and percutaneous transluminal coronary angioplasty and stents. PLAN: 1. Continue to hold metformin. 2. Avoid nephrotoxins. 3. Dose all antibiotics for creatinine clearance about 30-50 mL/minute. 4. Continue to hold CATHERINE inhibitor. 5. Suspect the etiology of acute kidney injury is mild prerenal azotemia plus sepsis related. 6. Low-dose IV fluids. Alicia Pang MD [facility] # [id number]
[2017-12-24 14:50] VITALS: BP 131/81; O2SAT 99
--- NOTE | 2017-12-24 14:58 | PN ---
DATE: SUBJECTIVE: The patient is a 62 years old seen and examined, lying in bed, seems to be comfortable, complaining of some discomfort to both big toes. Otherwise, no nausea, vomiting or diarrhea. PHYSICAL EXAMINATION: VITAL SIGNS: He is afebrile, pulse 70, respirations 18, blood pressure 142/87. LUNGS: Bilateral good airflow. No rhonchi or crackle. HEART: S1, S2 audible. ABDOMEN: Soft, nontender. No rebound, no guarding. NEUROLOGIC: He is awake, alert, oriented. bilateral big toe dressing. LABORATORY DATA: His sodium 141, potassium 4.6, chloride 107, CO2 of 23, BUN 26, creatinine 1.7, blood sugar 142, magnesium 2.3. ASSESSMENT: 1. Bilateral big toe cellulitis. 2. Severe peripheral vascular disease. 3. Renal insufficiency. 4. Uix-ikamwkd-bfeoxfkad diabetes. 5. Hypertension. 6. Coronary artery disease. PLAN: Patient is currently on antibiotics. He is receiving Zyvox, he is on analgesics as needed. Plan is for MRA decided what kind of intervention he would need. For now, we will continue him on antibiotics, local wound care and we will follow up MRA study for his bilateral lower extremity occlusive disease. Silvano Gonzalez MD
--- NOTE | 2017-12-24 19:35 | PN ---
DATE: SUBJECTIVE: The patient was unable to perform the MRA runoff due to claustrophobia. I had an opportunity to speak with Dr. Sheikh concerning his situation. Given his renal insufficiency, it would be prudent not to expose him to contrast during this admission. Dr. Sheikh feels the nail beds are improving and can be treated conservatively at this time. So we will cancel the MRA and we are not planning on a catheterization/lower extremity arteriogram at this time. If his wounds do not heel or get worse, an arteriogram can be performed at that time after appropriate hydration. Kenneth Mccullough MD [facility]
--- NOTE | 2017-12-25 00:46 | PN ---
DATE: 12/24/2017 SUBJECTIVE: The patient is seen earlier this morning. The patient is in no acute distress, nontoxic. PHYSICAL EXAMINATION: VITAL SIGNS: Temperature is 98, blood pressure is 130/80, respiratory rate of 18. HEENT: Unremarkable. NECK: Supple. LUNGS: Have decreased breath sounds. HEART: Normal S1, S2. ABDOMEN: Soft. LABORATORY EXAMINATION: Reveals a white count of 7.1, hemoglobin of 9, platelets of 252. Chemistries reveal a BUN of 26, creatinine of 1.7 and urinalysis is noted and microbiology reveals the blood cultures no growth, urine cultures no growth. ASSESSMENT AND PLAN: A 62-year-old male seen early this morning with bilateral hallux skin and skin structure infection, hypertension, diabetes, dyslipidemia, significant history of smoking, currently on Zyvox. Case discussed with Dr. Gonzalez. Ronald Dwyer MD
[2017-12-25] MEDS: Albuterol-Ipratrop 3 mg / 0.5 (3 ml) UD IH SCH ×5 (02:40→13:02)
[2017-12-25] MEDS: Insulin Reg-HIGH-Coverage SC SCH ×2 (05:31→08:00)
[2017-12-25] MEDS: Pantoprazole 40 mg EC Tab PO SCH (05:32)
[2017-12-25] MEDS: Sodium Chloride 0.45% 1,000 ML IV SCH (05:32)
[2017-12-25 07:26] LABS: HEMOGLOBIN 9.5 g/dL (14.0-18.0); MEAN CELL VOLUME 86.9 fl (80.0-105.0); MEAN CORPUSCULAR HEMOGLOBIN 28.2 pg (25.0-35.0); MEAN CORPUSCULAR HGB CONC 32.4 g/dl (31.0-37.0); MEAN PLATELET VOLUME 9.8 fl (7.0-11.0); RBC 3.37 10^6/uL (3.5-6.1); RED CELL DISTRIBUTION WIDTH 15.9 % (11.5-14.5); WHITE BLOOD COUNT 7.8 10^3/ul (4.5-11.0)
[2017-12-25 07:38] LABS: ALB/GLOB RATIO 1.5 (1.1-1.8); ALBUMIN 3.7 g/dL (3.0-4.8); ALT/SGPT 42 U/L (7-56); AST/SGOT 25 U/L (17-59); BLOOD UREA NITROGEN 26 mg/dL (7-21); CALCIUM 9.3 mg/dL (8.4-10.5); GFR AFRICAN-AMERICAN > 60; GFR NON-AFRICAN AMERICAN 51
[2017-12-25 09:38] VITALS: PULSE 79; RESP 20; TEMP 98
[2017-12-25] MEDS: Linezolid 600 mg in D5W 300 ml 600 MG/300 ML BAG IVPB SCH (09:55)
[2017-12-25] MEDS: Oxycodone/Acetaminophen 5/325 mg Tab PO PRN (09:55)
[2017-12-25] MEDS ORDERED: Iron Complex Polysacch 150mg Cap PO SCH (12:15)
--- NOTE | 2017-12-25 12:42 | CP.PCM.PN ---
Subjective - Date & Time of Evaluation Date of Evaluation: 12/25/17 Time of Evaluation: 10:00 - Subjective Subjective: Podiatry Progress Note- Dr. Sheikh 62 y.o male seen and evaluated for bilateral hallux cellulitis. Patient is seen resting comfortably in bed, in AA0x3, and NAD. Patient reports that he is feeling good. Patient reports pain with palpation to the left toe. Patient denies acute overnight events. Denies n/v/sob/cp/chills/f. Objective - Vital Signs/Intake and Output Vital Signs (last 24 hours): Temp Pulse Resp BP Pulse Ox 98.0 F 79 20 131/81 99 12/25/17 09:36 12/25/17 09:36 12/25/17 09:36 12/24/17 14:00 12/25/17 09:36 Intake and Output: 12/25/17 12/25/17 06:59 18:59 Intake Total 240 Output Total 1000 Balance -760 - Medications Medications: Current Medications Acetaminophen (Tylenol 325mg Tab) 650 mg PO Q6H PRN PRN Reason: Fever >100.4 F Albuterol/Ipratropium (Duoneb 3 Mg/0.5 Mg (3 Ml) Ud) 3 ml IH [id number] [facility] Last Admin: 12/25/17 11:02 Dose: 3 ml Alprazolam (Xanax) 0.25 mg PO HS [facility] PRN Reason: Protocol Stop: 12/29/17 22:01 Last Admin: 12/24/17 21:27 Dose: 0.25 mg Aspirin (Ecotrin) 81 mg PO DAILY [facility] Last Admin: 12/25/17 09:55 Dose: 81 mg Atorvastatin Calcium (Lipitor) 10 mg PO DIN [facility] Last Admin: 12/24/17 17:59 Dose: 10 mg Diphenhydramine HCl (Benadryl) 10 mg PO HS PRN PRN Reason: Allergy symptoms Glipizide (Glucotrol) 5 mg PO ACBD [facility] Last Admin: 12/25/17 08:01 Dose: 5 mg Linezolid (Zyvox 600mg/300ml D5w) 600 mg in 300 mls @ 200 mls/hr IVPB Q12 [facility] PRN Reason: Protocol Stop: 12/28/17 22:01 Last Admin: 12/25/17 09:55 Dose: 200 mls/hr Sodium Chloride (Sodium Chloride 0.45%) 1,000 mls @ 60 mls/hr IV .[id number] [facility] Last Admin: 12/25/17 05:32 Dose: Not Given Insulin Human Regular (Humulin R High) 0 units SC ACHS [facility] PRN Reason: Protocol Last Admin: 12/25/17 08:00 Dose: 2 units Nicotine (Nicoderm Cq) 1 patch TD DAILY [facility] Last Admin: 12/25/17 09:55 Dose: 1 patch Ondansetron HCl (Zofran Inj) 4 mg IVP Q6H PRN PRN Reason: Nausea/Vomiting Last Admin: 12/25/17 08:01 Dose: 4 mg Oxycodone/Acetaminophen (Percocet 5/325 Mg Tab) 1 tab PO Q6H PRN PRN Reason: Pain, moderate (4-7) Stop: 12/27/17 17:57 Last Admin: 12/25/17 09:55 Dose: 1 tab Pantoprazole Sodium (Protonix Ec Tab) 40 mg PO 0630 [facility] Last Admin: 12/25/17 05:32 Dose: Not Given Polysaccharide Iron Complex (Ferrex-150) 150 mg PO DAILY [facility] Silver Sulfadiazine (Silvadene 1% 25 Gm) 0 gm TP DAILY [facility] Last Admin: 12/24/17 10:38 Dose: 1 gm Ticagrelor (Brilinta) 90 mg PO BID [facility] Last Admin: 12/25/17 09:55 Dose: 90 mg - Labs Labs: 12/25/17 06:45 12/25/17 06:45 PT 11.2 SECONDS (9.4-12.5) 12/21/17 10:48 INR 0.97 (0.93-1.08) 12/21/17 10:48 APTT 29.1 Seconds (25.1-36.5) 12/21/17 10:48 - Constitutional Appears: Well, Non-toxic, No Acute Distress - Extremities Exam Extremities Exam: absent: Calf Tenderness Additional comments: Lower extremity focused. VASC: DP and PT pulses palpable, graded 1/4. CRF to all 10 digits < 3 seconds. Temperature runs cool to cool proximal to distal. DERM: Bilateral partial hallux medial and lateral nail plates secondary to permanent slant back absent with soften hyperkeratotic nail folds, mild tenderness to palpation to the nail folds, with localized non streaking erythema. Rest of th nail plate is firmly attached to the nail bed. Open lesion is noted to the lateral aspect of proximal nail bed and fibrotic in nature. Absent callor. No active drainage noted. Soft tissue surrounding nail plate is softening NEURO: Protective sensation grossly intact. MUSK: No gross deformities noted. Pedal and lower leg muscle strenght in 4 major muscle groups graded 5/5. Assessment and Plan - Assessment and Plan (Free Text) Assessment: 62 year old male with bilateral great toe cellulits, resolving, and ulceration noted to the lateral proximal aspect of nail bed of left hallux Plan: Pt seen and evaluated at the bedside. Chart, labs and vitals reviewed: afebrile, absent leukocytosis. Discussed the plan with Dr. Sheikh Pt advised to keep toes clean and dry and to wear hospital socks. Dressed great toes cleansed with saline solution and dressed with silvadene Ordered hydrogen peroxide to use for cleansing b/l foot x-rays results reviewed- negative for hallux OM. c/w Zyvox per ID Patient is stable for discharge per podiatry Upon discharge, patient to follow up with Dr. Villanueva, his outpatient full service supervisor, for continue treatment of bilateral hallux At this time patient instructed to leave right hallux open to air, patient may clean hallux with saline solution Left hallux is to be cleansed with hydrogen peroxide, pat dry and use silvadene to the entire left hallux Dress the hallux with bandage or dsd Pt instructed local wound care directions until visitation with Dr. Villanueva for re-evaluation
--- NOTE | 2017-12-25 13:24 | PN ---
DATE: SUBJECTIVE: The patient is currently seen sitting up in bed, eating lunch. There is a chance he will be discharged later today on oral antibiotic therapy for his bilateral toe infection. The patient was not able to have an MRA study done because of claustrophobia. As per Dr. Kenneth Mccullough's note, he will likely be brought back post healing of his toe infection for an angiogram for evaluation of peripheral vascular disease. MEDICATIONS: Medication list reviewed. The patient is currently on Benadryl, Brilinta, DuoNeb, Ecotrin, Glucotrol, insulin, Lipitor, NicoDerm CQ, Percocet, Protonix, Silvadene, half-normal saline 60 an hour which will be discontinued upon discharge, Tylenol, Xanax, Zofran, and Zyvox. OBJECTIVE: INTAKE/OUTPUT: Intake 240, output 1000. VITAL SIGNS: Blood pressure is 131/81, temperature 98, respiratory rate is 20 with a pulse of 79. HEENT: Normocephalic, atraumatic. Conjunctivae are pale. Sclerae are nonicteric. NECK: Supple. No neck vein distention. CHEST: Clear to auscultation and percussion. No rales, rhonchi, or wheezing. CARDIOVASCULAR: Regular rate and rhythm without audible murmurs, rubs, or gallops. ABDOMEN: Soft. Bowel sounds normal. No rebound, guarding, or masses. EXTREMITIES: Show dressings over his big toes bilaterally. No evidence of cellulitis. Diminished pulses in his left lower extremity. LABORATORY DATA AND IMAGING: CBC: White blood cell count today 7.8, hemoglobin 9.5 trending lower with IV fluid hydration, and platelet count is 244,000. Chemistry showed normal electrolytes. Potassium is 5.0. BUN down to 26, creatinine is 1.4. His baseline BUN is 20 or less with a baseline creatinine in the 1.3 range, so he is at or near his baseline levels. Glucose is 183. Calcium is 9.3. Phosphorus level from yesterday was 4.7, magnesium level yesterday was 2.3. Microbiology: Blood cultures are negative at 48 hours. Urine cultures are negative. ASSESSMENT: 1. Acute renal failure superimposed on chronic kidney disease stage 2 with a baseline creatinine in the 1.2 to 1.3 range. This is in the setting of krq-fygmlqx-medfsgzar diabetes mellitus and hypertension with peripheral vascular disease. 2. History of infection of his big toes bilaterally secondary to removal of ingrown toenail. The patient will likely continue on oral antibiotic therapy upon discharge. All cultures are negative. 3. History of hypertension. In light of his borderline from mild hyperkalemia, I would not give the patient an CATHERINE inhibitor upon discharge. Lisinopril should be discontinued. 4. History of [id number]-imbetmlvj diabetes mellitus, metformin had been on hold. The patient was on sliding scale insulin and he has started glipizide. Perhaps, this medication would be safer, but metformin is necessary with a creatinine of 1.3 to 1.4, it would be acceptable. 5. Status post severe hyperkalemia, no plans for an CATHERINE inhibitor. The patient should adhere to a low potassium diet. 6. History of mild anemia. Iron saturations of borderline low at 18%. B12 level was normal. Folic acid level is normal. The patient should be started on oral iron supplements. 7. History of peripheral vascular disease. The patient will need further evaluation of his left lower extremity and will likely return post resolution of his toe infection for an angiogram. The patient should receive appropriate hydration and Mucomyst to prevent any renal contrast nephrotoxicity. 8. History of cigarette smoking. The patient needs to stop cigarette smoking. 9. History of arteriosclerotic heart disease, status post PTCA. The patient will continue present cardiac medications. 10. History of hyperlipidemia. The patient will continue statin therapy. PLAN: 1. Explained to the patient that I would prefer that he remain off lisinopril. If blood pressure is elevated, the patient may receive a calcium channel jessika. 2. The patient do adhere to all dietary restrictions. 3. Agree with tentative discharge home on oral antibiotic therapy. 4. The patient should receive Mucomyst and IV fluid hydration should he return for an angiogram. 5. The patient should be started on oral iron supplements upon discharge in light of his iron saturation of 18% and has mild anemia. 6. The patient is stable from a renal standpoint. We will discontinue formal renal followup at this time. Marcel Kaufman MD
--- NOTE | 2017-12-26 00:53 | PN ---
DATE: SUBJECTIVE: The patient is in bed, in no acute distress, was seen early this morning, doing well. PHYSICAL EXAMINATION: VITAL SIGNS: Temperature is 98, blood pressure is 120/70, respiratory rate of 16. HEENT: Unremarkable. NECK: Supple. LUNGS: Have decreased breath sounds. HEART: Normal S1, S2. ABDOMEN: Soft. LABORATORY DATA: Reveals a white count of 7.8, hemoglobin of 9, platelets of 244. Chemistry reveals a BUN of 26, creatinine of 1.4. Microbiology reveals the blood cultures are negative. Urine cultures are negative. ASSESSMENT AND PLAN: This is a 62-year-old male who was seen early this morning with bilateral hallux skin and soft tissue infection, diabetes, dyslipidemia, on Zyvox. Followup with Podiatry. Ronald Dwyer MD
--- NOTE | 2017-12-26 12:42 | DS ---
HOSPITAL COURSE: The patient is 62 years old, doing well, foot pain is better. Denies any nausea or vomiting. PHYSICAL EXAMINATION: VITAL SIGNS: He is afebrile, pulse 79, respirations 20, blood pressure 121/81. LUNGS: Bilateral good airflow. No rhonchi or crackle. HEART: S1 and S2 audible. No murmur. ABDOMEN: Soft, nontender. No rebound, no guarding. NEUROLOGIC: He is awake, alert, oriented, communicative. EXTREMITIES: Bilateral leg, no edema. Bilateral toe swelling seems to be improving and erythema has improved. LABORATORY DATA: WBC 7.8, hemoglobin 9.5, hematocrit 29.3, platelets 244. Chemistry: Sodium 140, potassium 5.0, chloride 110, CO2 of 22, BUN 26, creatinine 1.4, blood sugar of 132. Urinalysis is unremarkable. Blood cultures and urine cultures are negative. ASSESSMENT AND PLAN: 1. Bilateral big toe cellulitis, improving. 2. Peripheral vascular disease. 3. Hypertension. 4. Coronary artery disease status post angioplasty. 5. Noninsulin-dependent diabetes. 6. Hyperlipidemia. PLAN: Currently, the patient is doing well. ID is okay to discharge him on p.o. 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 So, the patient will resume all his medication as prior to admission. He will be given prescription of Zyvox 600 twice a day for 2 more weeks. The patient can continue Zyvox 600 twice a day for 2 more weeks and we will follow him up as outpatient and arrange for peripheral angiography later on and monitor his kidney function. Continue antibiotic, continue to hold metformin and lisinopril and he will follow up in office . Silvano Gonzalez MD
== END 2017-12-25 14:25 | disposition home or self-care (01) | DRG 563 ==
LOC: ED 09:57 → ERH 12:15 → 3RSO 14:37 → 5RSO 12-23 15:27
PROVIDERS: ADMIT Internal Medicine; ATTEND Internal Medicine
PROC: 3E03328 Introduction of Oxazolidinones into Peripheral Vein, Percutaneous Approach (ICD-10-PCS; principal; 2017-12-21)
PROC: 3E0F7GC Introduction of Other Therapeutic Substance into Respiratory Tract, Via Natural or Artificial Opening (ICD-10-PCS; 2017-12-22)
DX: L03.032 Cellulitis of left toe (principal); L03.031 Cellulitis of right toe; N17.9 Acute kidney failure, unspecified; E11.22 Type 2 diabetes mellitus with diabetic chronic kidney disease; E11.51 Type 2 diabetes mellitus with diabetic peripheral angiopathy without gangrene; E11.621 Type 2 diabetes mellitus with foot ulcer; L97.529 Non-pressure chronic ulcer of other part of left foot with unspecified severity; L97.519 Non-pressure chronic ulcer of other part of right foot with unspecified severity; E87.5 Hyperkalemia; E87.2 Acidosis; N18.2 Chronic kidney disease, stage 2 (mild); J44.9 Chronic obstructive pulmonary disease, unspecified; I25.10 Atherosclerotic heart disease of native coronary artery without angina pectoris; I12.9 Hypertensive chronic kidney disease with stage 1 through stage 4 chronic kidney disease, or unspecified chronic kidney disease; F17.210 Nicotine dependence, cigarettes, uncomplicated; D64.9 Anemia, unspecified; F40.240 Claustrophobia; E78.5 Hyperlipidemia, unspecified; Z79.84 Long term (current) use of oral hypoglycemic drugs; Z95.5 Presence of coronary angioplasty implant and graft